=== PATIENT | female | born 1945 | race Two or more races ===

== ENCOUNTER 2017-01-16 21:49 | Inpatient (IN) | payer MEDICARE, MEDICAID ==
[~2017-01-16] VITALS: Ht 162.6 cm; Wt 39.0 kg
[2017-01-16 21:50] VITALS: BP 140/80
--- NOTE | 2017-01-16 22:21 | Emergency Room Report ---
History of Present Illness General Chief Complaint: Altered Level of Consciousness Source: EMS, Caregiver Present Illness HPI Patient is 71-year-old female brought in by EMS for altered mental status. Patient had prior history of Parkinson's disease. Patient was noted to be on the same medications for quite some time. Patient reportedly had onset of symptoms approximately 4 PM. The patient had a decreased level consciousness. As she had been less responsive. Patient had prior history of CVA. She had not been having fever. She denied having any vomiting or diarrhea. The patient had been taking baby aspirin. Patient followed by Dr. Duckworht Allergies: Coded Allergies: No Known Allergies (Unverified , 01/16/17) Patient History Past Medical History: see triage record Reviewed Nursing Documentation: PMH: Agreed, PSxH: Agreed Review of Systems All Other Systems: limited Physical Exam Vital Signs Date Time Temp Pulse Resp B/P Pulse Ox O2 Delivery O2 Flow Rate FiO2 01/16/17 21:44 97.9 74 16 140/80 98 Room Air Sp02 EP Interpretation: reviewed, normal General Appearance: normal inspection, no apparent distress, thin, Chronically Ill Head: atraumatic ENT: normal ENT inspection, hearing grossly normal, normal voice Neck: normal inspection, supple, no bony tend, limited range of motion Respiratory: normal inspection, lungs clear, normal breath sounds, no respiratory distress, no retraction, no wheezing Cardiovascular #1: regular rate, rhythm, no edema Gastrointestinal: normal inspection, normal bowel sounds, non tender, soft, no guarding, no hernia Genitourinary: no CVA tenderness Musculoskeletal: normal inspection, back normal, normal range of motion Neurologic: normal inspection, responsive, curriculum and assessment coordinator III-XII nml as tested, motor weakness Psychiatric: normal inspection, judgement/insight normal, mood/affect normal Skin: normal inspection, normal color, no rash Medical Decision Making Diagnostic Impression: Primary Impression: Altered mental state Additional Impressions: Dementia Urinary tract disease ER Course Patient presented for altered mental status.Differential diagnosis included but was not limited to ischemic stroke, subarachnoid hemorrhage, hypoglycemia, spinal cord injury, neurodegenerative disorder, urinary tract infection, hypoxemia.Because of complexity of patient's case laboratory testing and imaging studies were ordered. A CT of head read by radiology showed a lacunar infarct. The patient was empirically given rectal aspirin. The patient noted have history of Parkinson disease. A urinalysis showed evidence of slight infection. Dr. Bruno Duckworth was contacted for inpatient management Labs Test 01/16/17 22:20 01/16/17 23:50 White Blood Count 4.2 K/UL (4.8-10.8) Red Blood Count 4.00 M/UL (4.20-5.40) Hemoglobin 14.7 G/DL (12.0-16.0) Hematocrit 40.8 % (37.0-47.0) Mean Corpuscular Volume 102 FL (80-99) Mean Corpuscular Hemoglobin 36.8 PG (27.0-31.0) Mean Corpuscular Hemoglobin Concent 36.1 G/DL (32.0-36.0) Red Cell Distribution Width 11.3 % (11.6-14.8) Platelet Count 157 K/UL (150-450) Mean Platelet Volume 8.9 FL (6.5-10.1) Neutrophils (%) (Auto) 76.4 % (45.0-75.0) Lymphocytes (%) (Auto) 13.8 % (20.0-45.0) Monocytes (%) (Auto) 7.6 % (1.0-10.0) Eosinophils (%) (Auto) 1.3 % (0.0-3.0) Basophils (%) (Auto) 1.0 % (0.0-2.0) Prothrombin Time 11.6 SEC (9.30-11.50) Prothromb Time International Ratio 1.1 (0.9-1.1) Activated Partial Thromboplast Time 44 SEC (23-33) Sodium Level 138 mEQ/L (135-145) Potassium Level 3.7 mEQ/L (3.4-4.9) Chloride Level 99 mEQ/L (98-107) Carbon Dioxide Level 30 mEQ/L (20-30) Anion Gap 9 (5-15) Blood Urea Nitrogen 17 mg/dL (7-23) Creatinine 0.9 mg/dL (0.5-0.9) Estimat Glomerular Filtration Rate mL/min (>60) Glucose Level 141 mg/dL (74-106) Calcium Level 9.5 mg/dL (8.6-10.2) Total Bilirubin 0.3 mg/dL (0.0-1.2) Aspartate Amino Transf (AST/SGOT) 29 U/L (5-40) Alanine Aminotransferase (ALT/SGPT) 5 U/L (3-33) Alkaline Phosphatase 78 U/L (35-104) Troponin I < 0.30 ng/mL (<=0.30) Total Protein 6.8 g/dL (6.6-8.7) Albumin 4.3 g/dL (3.5-5.2) Globulin 2.5 g/dL Albumin/Globulin Ratio 1.7 (1.0-2.7) Triglycerides Level 120 mg/dL (< 150) Cholesterol Level 143 mg/dL (< 200) LDL Cholesterol 60 mg/dL (60-99) HDL Cholesterol 59 mg/dL (> 60) Cholesterol/HDL Ratio 2.4 (3.3-4.4) Urine Color Yellow Urine Appearance Slightly cloudy Urine pH 7 (4.5-8.0) Urine Specific [place] 1.010 (1.005-1.035) Urine Protein Negative (NEGATIVE) Urine Glucose (UA) Negative (NEGATIVE) Urine Ketones Negative (NEGATIVE) Urine Occult Blood 2+ (NEGATIVE) Urine Nitrite Negative (NEGATIVE) Urine Bilirubin Negative (NEGATIVE) Urine Urobilinogen Normal MG/DL (0.0-1.0) Urine Leukocyte Esterase 1+ (NEGATIVE) Urine RBC 5-10 /HPF (0 - 2) Urine WBC 5-10 /HPF (0 - 2) Urine Squamous Epithelial Cells Few /LPF (NONE/OCC) Urine Bacteria Moderate /HPF (NONE) Urine Trichomonas Few /HPF (NONE) EKG Diagnostic Results Rate: normal Rhythm: NSR ST Segments: other - twave inversion Last Vital Signs Date Time Temp Pulse Resp B/P Pulse Ox O2 Delivery O2 Flow Rate FiO2 01/16/17 21:50 97.9 16 140/80 98 Room Air 01/16/17 21:44 74 Status: unchanged Disposition: ADMITTED INPATIENT Condition: Serious Rodrigo Marshall Jan 16, 2017 22:21
[2017-01-16 22:39] LABS: EOSINOPHILS % (AUTO) 1.3 % (0.0-3.0); LYMPHOCYTES % (AUTO) 13.8 % (20.0-45.0); MEAN CORPUSCULAR HEMOGLOBIN 36.8 PG (27.0-31.0); MEAN CORPUSCULAR HGB CONC 36.1 G/DL (32.0-36.0); MEAN CORPUSCULAR VOLUME 102 FL (80-99); MEAN PLATELET VOLUME 8.9 FL (6.5-10.1); MONOCYTES % (AUTO) 7.6 % (1.0-10.0); NEUTROPHILS % (AUTO) 76.4 % (45.0-75.0); PLATELET COUNT 157 K/UL (150-450); RED CELL DISTRIBUTION WIDTH 11.3 % (11.6-14.8); WHITE BLOOD COUNT 4.2 K/UL (4.8-10.8)
[2017-01-16 22:51] LABS: INR 1.1 (0.9-1.1); PROTHROMBIN TIME 11.6 SEC (9.30-11.50)
[2017-01-16 23:07] LABS: TROPONIN I < 0.30 ng/mL (<=0.30)
[2017-01-16 23:08] LABS: ALANINE AMINOTRANSFERASE 5 U/L (3-33); ALBUMIN/GLOBULIN RATIO 1.7 (1.0-2.7); ANION GAP 9 (5-15); ASPARTATE AMINO TRANSFERASE 29 U/L (5-40); CALCIUM 9.5 mg/dL (8.6-10.2); CARBON DIOXIDE 30 mEQ/L (20-30); CHLORIDE 99 mEQ/L (98-107); CHOLESTEROL 143 mg/dL (< 200); CHOLESTEROL/HDL RATIO 2.4 (3.3-4.4); CREATININE 0.9 mg/dL (0.5-0.9); HEMOLYSIS 10; LDL CHOLESTEROL (CALC.) 60 mg/dL (60-99); POTASSIUM 3.7 mEQ/L (3.4-4.9); SODIUM 138 mEQ/L (135-145); TOTAL PROTEIN 6.8 g/dL (6.6-8.7)
[2017-01-16] MEDS ORDERED: VITAMIN D400 INTLU ORAL (23:32)
[2017-01-16] MEDS ORDERED: CARBIDOPA-LEVO1 EA15 PO (23:32)
[2017-01-16] MEDS ORDERED: SINEMET 25-1001 EAC1 ORAL (23:32)
[2017-01-16] MEDS ORDERED: QUETIAPINE FUMA25 MG ORAL (23:32)
[2017-01-16] MEDS ORDERED: ELDEPRYL5 MG ORAL (23:32)
[2017-01-17] VITALS (9 sets, daily range): BP systolic 125–163; BP diastolic 65–84
[2017-01-17 00:16] LABS: APPEARANCE,URINE SLIGHTLY CLOUDY; KETONES,URINE NEGATIVE (NEGATIVE); LEUKOCYTE ESTERASE ,URINE 1+ (NEGATIVE); NITRITE,URINE NEGATIVE (NEGATIVE); PH,URINE 7 (4.5-8.0); PROTEIN,URINE NEGATIVE (NEGATIVE); UROBILINOGEN,URINE NORMAL MG/DL (0.0-1.0)
[2017-01-17 00:29] LABS: BACTERIA,URINE MODERATE /HPF; SQUAMOUS EPITHELIAL CELL,UR FEW /LPF (NONE/OCC)
[2017-01-17] MEDS ORDERED: cefTRIAXone 1 GM in D5W 55 ML IVPB ONE (00:45)
[2017-01-17] MEDS ORDERED: ELDEPRYL5 MG ORAL ×2 (01:54→02:03)
[2017-01-17] MEDS ORDERED: QUETIAPINE FUMA25 MG ORAL (01:54)
[2017-01-17] MEDS ORDERED: CARBIDOPA-LEVO1 EAC5 PO ×2 (01:54→02:03)
[2017-01-17] MEDS ORDERED: VITAMIN D-32000 UNI1 PO (01:54)
[2017-01-17] MEDS ORDERED: ASPIR 8181 MG ORAL (02:03)
[2017-01-17] MEDS ORDERED: SEROQUEL25 MG ORAL (02:03)
[2017-01-17] MEDS ORDERED: VITAMIN D31000 UNI2 PO (02:03)
[2017-01-17] MEDS ORDERED: ATORVASTATIN CA10 MG ORAL (02:03)
[2017-01-17] MEDS: metroNIDAZOLE 250mg tab ORAL SCH ×2 (06:12→14:00)
[2017-01-17] MEDS ORDERED: Aspirin Baby 81mg NG SCH (09:00)
--- NOTE | 2017-01-17 09:33 | Diagnostic Imaging Report ---
Indication: Altered mental status Technique: Continuous helical CT scanning of the head was performed utilizing automated exposure control without intravenous contrast material. Axial and coronal reconstructions were obtained. Comparison: None available CT dose: Total DLP 1447 mGycm; CTDI vol 70.4 mGy Findings: Evaluation is limited by artifact. There is no gross intracranial hemorrhage or focal cortical edema. The ventricles, sulci and cisterns are within normal limits for age. Periventricular hypoattenuation is seen. There is a 6 mm hypodensity in the left basal ganglia. The posterior fossa and fourth ventricle are unremarkable. Sellar and suprasellar regions are grossly unremarkable. Visualized mastoid air cells and paranasal sinuses are unremarkable. No focal lesions of the bony calvarium or soft tissues of the scalp are seen. Impression: No intracranial hemorrhage or focal cortical edema. Approximately 6 mm hypodensity of the left basal ganglia suggestive of acuity indeterminate lacunar infarct. MRI recommended for further evaluation as indicated. The above report is concordant with preliminary reading by [facility]. The CT scanner at [facility] is accredited by the [employer] and the scans are performed using protocols designed to limit radiation exposure to as low as reasonably achievable to attain images of sufficient resolution adequate for diagnostic evaluation.
[2017-01-17] MEDS: Aspirin Baby 81mg ORAL SCH (09:50)
[2017-01-17] MEDS: SELEGILINE 5 MG ORAL SCH ×2 (09:50→18:25)
[2017-01-17] MEDS: Vitamin D 1000 IU Tab ORAL SCH ×2 (09:50→18:25)
[2017-01-17] MEDS: Heparin 5000 units/ml inj SUBQ SCH ×2 (10:00→21:13)
--- NOTE | 2017-01-17 16:58 | Cardiology Report ---
APPROVED REPORT EKG Measurement Heart [id number] MD [id number] Normal sinus rhythm T wave abnormality, consider inferolateral ischemia Abnormal ECG
[2017-01-17 23:44] LABS: APPEARANCE,URINE CLEAR; KETONES,URINE NEGATIVE (NEGATIVE); LEUKOCYTE ESTERASE ,URINE NEGATIVE (NEGATIVE); NITRITE,URINE NEGATIVE (NEGATIVE); PH,URINE 7 (4.5-8.0); PROTEIN,URINE NEGATIVE (NEGATIVE); UROBILINOGEN,URINE NORMAL MG/DL (0.0-1.0)
--- NOTE | 2017-01-17 23:45 | History and Physical Report ---
DATE OF ADMISSION: 01/16/2017 REASON FOR ADMISSION: altered mentation. HISTORY OF PRESENT ILLNESS: This is a 71-year-old female who lives in a assisted living facility with other nuns. She was noted to be increasingly altered this afternoon and brought to the emergency room for evaluation. The patient has a history of Parkinson disease and mild dementia. Today, she was noted to be slumping down towards the ground, although responsive. She stated she could not get up, another man noted that her left eye was shut and that she was not able to speak for a short period of time. The patient did not have any recent fevers, chills, cough, sputum production, nausea, vomiting or diarrhea. PAST MEDICAL HISTORY: Cerebrovascular disease, dementia, Parkinson disease, gastroesophageal reflux disease, degenerative disk disease, and osteoarthritis. MEDICATIONS: Prior to admission, reviewed and reconciled. ALLERGIES: None. FAMILY HISTORY: Noncontributory. SOCIAL HISTORY: Negative for smoking, alcohol, or substance abuse. REVIEW OF SYSTEMS: No fevers or chills. No loss of hearing. Her speech has recovered at this time. No history of seizures. No history of melena or bright red blood per rectum. No history of kidney disorder. No history of myocardial infarction or hypertension. No history of asthma or blood clotting. PHYSICAL EXAMINATION: GENERAL: The patient is thin and frail, in no distress. Speech is somewhat lower than baseline, but coherent. VITAL SIGNS: Blood pressure 140/80, pulse 74, and respiratory rate 16. HEENT: Conjunctivae are pink. Sclerae are anicteric. Oropharynx clear. Mucous membranes moist. NECK: Supple. Jugular venous pressure normal. No bruits. LUNGS: Clear. CARDIAC: Regular rhythm and rate. Normal S1 and S2 with a fourth heart sound. ABDOMEN: Soft and nontender. EXTREMITIES: No edema. Sense of symmetric increased tone and rigidity with masklike faces is noted. LABORATORY AND DIAGNOSTIC DATA: White count is 4.2, hemoglobin 14.7, and MCV 102. BUN 17, creatinine 0.9, sodium 138, potassium 3.7, bicarbonate 30, and glucose 141. Urinalysis with 5-10 white cells, 2+ occult blood, cloudy and 1+ leukocyte esterase. IMPRESSION: 1. Possible transient ischemic attack. 2. Parkinson disease. 3. Cerebrovascular disease with dementia. 4. Urinary tract infection. 5. Mild hypovolemia and dehydration. 6. Mild prerenal azotemia with acute kidney injury. 7. Macrocytic anemia. PLAN: Hydration. Empiric antibiotics. Neurologic consultation. Reassess dosing of Sinemet, which appeared to be higher dose at this time. MRI of the brain. Carotid duplex study. Metabolic profile including B12 and folate levels. Bruno Duckworth M.D. DR: EH JOB#: [id number] CC:
[2017-01-17 23:59] LABS: BACTERIA,URINE FEW /HPF; SQUAMOUS EPITHELIAL CELL,UR FEW /LPF (NONE/OCC); WBC,URINE 0-2 /HPF (0 - 2)
[2017-01-18] VITALS (7 sets, daily range): BP systolic 132–180; BP diastolic 62–81
[2017-01-18] MEDS ORDERED: cefTRIAXone 1 GM in D5W 55 ML IVPB SCH ×2
--- NOTE | 2017-01-18 02:00 | Progress Note ---
DATE: 01/17/2017 INTERNAL MEDICINE PROGRESS NOTE SUBJECTIVE: The patient is more alert. She has no specific complaints. Other nuns from her con[facility] are present. They reaffirmed that she was unresponsive for a short time yesterday as well as unable to open her left eye. The patient's appetite is fair. OBJECTIVE: VITAL SIGNS: Blood pressure 125/65, pulse 76, respirations 20, and afebrile. HEENT: No facial asymmetry. NECK: Supple. LUNGS: Clear. CARDIAC: Regular. Normal S1 and S2. ABDOMEN: Soft. EXTREMITIES: No edema. IMPRESSION: 1. Possible transient ischemic attack. 2. Cerebrovascular disease with mild dementia. 3. Parkinson's disease. On high dose Sinemet. 4. Urinary tract infection. 5. Mild hypovolemia and dehydration, improved. PLAN: 1. Neurologic evaluation to assist with the dosing of Sinemet. 2. Continue empiric antibiotics. 3. IV fluid hydration. 4. Await carotid duplex and MRI of the brain. Bruno Duckworth M.D. DR: AYAN JOB#: [id number] CC:
[2017-01-18 07:09] LABS: BASOPHILS % (AUTO) 1.2 % (0.0-2.0); EOSINOPHILS % (AUTO) 2.7 % (0.0-3.0); LYMPHOCYTES % (AUTO) 17.4 % (20.0-45.0); MEAN CORPUSCULAR HEMOGLOBIN 35.7 PG (27.0-31.0); MEAN CORPUSCULAR HGB CONC 34.9 G/DL (32.0-36.0); MEAN CORPUSCULAR VOLUME 102 FL (80-99); MEAN PLATELET VOLUME 8.6 FL (6.5-10.1); MONOCYTES % (AUTO) 11.4 % (1.0-10.0); NEUTROPHILS % (AUTO) 67.2 % (45.0-75.0); PLATELET COUNT 120 K/UL (150-450); RED BLOOD COUNT 3.66 M/UL (4.20-5.40); RED CELL DISTRIBUTION WIDTH 11.1 % (11.6-14.8); WHITE BLOOD COUNT 3.9 K/UL (4.8-10.8)
[2017-01-18 07:22] LABS: TROPONIN I < 0.30 ng/mL (<=0.30)
[2017-01-18 07:23] LABS: ALANINE AMINOTRANSFERASE 5 U/L (3-33); ALBUMIN/GLOBULIN RATIO 1.6 (1.0-2.7); ANION GAP 10 (5-15); ASPARTATE AMINO TRANSFERASE 32 U/L (5-40); CARBON DIOXIDE 27 mEQ/L (20-30); CHLORIDE 109 mEQ/L (98-107); CREATININE 0.7 mg/dL (0.5-0.9); HEMOLYSIS 4; MAGNESIUM 2.1 mg/dL (1.7-2.5); POTASSIUM 4.3 mEQ/L (3.4-4.9); SODIUM 146 mEQ/L (135-145); TOTAL PROTEIN 6.2 g/dL (6.6-8.7)
[2017-01-18] MEDS: Vitamin D 1000 IU Tab ORAL SCH ×2 (08:44→18:43)
[2017-01-18] MEDS: SELEGILINE 5 MG ORAL SCH (08:44)
[2017-01-18] MEDS: Heparin 5000 units/ml inj SUBQ SCH ×2 (08:45→21:00)
[2017-01-18] MEDS: Aspirin Baby 81mg ORAL SCH (08:45)
[2017-01-18] MEDS ORDERED: Tubing IV Secondary IV ONE (10:07)
--- NOTE | 2017-01-18 10:51 | Diagnostic Imaging Report ---
Indication: Altered level of consciousness Technique: The head was imaged in a 1.5 Siobhan magnet. Sequences obtained include sagittal and axial T1 FLAIR, axial T2 fast spin echo with fat saturation, axial T2 FLAIR, diffusion and ADC map. Comparison: None Findings: There is mild prominence of the sulci, ventricles, and basal cisterns consistent with atrophy. Mild, nonspecific T2 hyperintensity noted within white matter. This may be due to chronic small vessel disease. Few nonspecific cystic foci noted in the basal ganglia bilaterally. These could be normal perivascular spaces or Virchow-Moustapha spaces or old lacunar infarcts. There is no restricted diffusion. Dubois-white differentiation is normal. There is no mass effect, midline shift, edema, or hemorrhage. There are no abnormal extra-axial or intra-axial fluid collections. The corpus callosum and sella are unremarkable. The brainstem and cerebellum are unremarkable. Bone marrow signal within the visualized osseous structures appears age appropriate and unremarkable otherwise. Impression: No acute intracranial findings. Mild atrophy and evidence of chronic small vessel disease involving white matter tracts.
--- NOTE | 2017-01-18 12:53 | Neurology Progress Note ---
Objective Physical Exam Last Vital Signs Date Time Temp Pulse Resp B/P Pulse Ox O2 Delivery O2 Flow Rate FiO2 01/18/17 12:49 97.8 77 18 151/77 96 Room Air Laboratory Tests Test 01/17/17 23:20 01/18/17 06:05 Urine Color Yellow Urine Appearance Clear Urine pH 7 (4.5-8.0) Urine Specific [place] 1.010 (1.005-1.035) Urine Protein Negative (NEGATIVE) Urine Glucose (UA) Negative (NEGATIVE) Urine Ketones Negative (NEGATIVE) Urine Occult Blood 1+ (NEGATIVE) H Urine Nitrite Negative (NEGATIVE) Urine Bilirubin Negative (NEGATIVE) Urine Urobilinogen Normal MG/DL (0.0-1.0) Urine Leukocyte Esterase Negative (NEGATIVE) Urine RBC 2-4 /HPF (0 - 2) H Urine WBC 0-2 /HPF (0 - 2) Urine Squamous Epithelial Cells Few /LPF (NONE/OCC) Urine Bacteria Few /HPF (NONE) White Blood Count 3.9 K/UL (4.8-10.8) L Red Blood Count 3.66 M/UL (4.20-5.40) L Hemoglobin 13.1 G/DL (12.0-16.0) Hematocrit 37.4 % (37.0-47.0) Mean Corpuscular Volume 102 FL (80-99) H Mean Corpuscular Hemoglobin 35.7 PG (27.0-31.0) H Mean Corpuscular Hemoglobin Concent 34.9 G/DL (32.0-36.0) Red Cell Distribution Width 11.1 % (11.6-14.8) L Platelet Count 120 K/UL (150-450) L Mean Platelet Volume 8.6 FL (6.5-10.1) Neutrophils (%) (Auto) 67.2 % (45.0-75.0) Lymphocytes (%) (Auto) 17.4 % (20.0-45.0) L Monocytes (%) (Auto) 11.4 % (1.0-10.0) H Eosinophils (%) (Auto) 2.7 % (0.0-3.0) Basophils (%) (Auto) 1.2 % (0.0-2.0) Sodium Level 146 mEQ/L (135-145) H Potassium Level 4.3 mEQ/L (3.4-4.9) Chloride Level 109 mEQ/L (98-107) H Carbon Dioxide Level 27 mEQ/L (20-30) Anion Gap 10 (5-15) Blood Urea Nitrogen 10 mg/dL (7-23) Creatinine 0.7 mg/dL (0.5-0.9) Estimat Glomerular Filtration Rate mL/min (>60) Glucose Level 110 mg/dL (74-106) H Calcium Level 9.0 mg/dL (8.6-10.2) Magnesium Level 2.1 mg/dL (1.7-2.5) Total Bilirubin 0.3 mg/dL (0.0-1.2) Aspartate Amino Transf (AST/SGOT) 32 U/L (5-40) Alanine Aminotransferase (ALT/SGPT) 5 U/L (3-33) Alkaline Phosphatase 70 U/L (35-104) Troponin I < 0.30 ng/mL (<=0.30) Total Protein 6.2 g/dL (6.6-8.7) L Albumin 3.9 g/dL (3.5-5.2) Globulin 2.3 g/dL Albumin/Globulin Ratio 1.6 (1.0-2.7) Vitamin B12 Level 724 pg/mL (211-946) Folate Pending Thyroid Stimulating Hormone (TSH) 2.030 uIU/mL (0.300-4.500) Impression/Recommendations Problems: (1) Parkinson disease (2) Generalized weakness Status: unchanged Recommendations [id number] GERSON GIPSON Jan 18, 2017 12:53
[2017-01-18] MEDS: ENTACAPONE ORAL SCH ×2 (16:37→18:43)
[2017-01-18] MEDS: LEVODOPA ORAL SCH ×2 (16:37→18:43)
[2017-01-18] MEDS: CARBIDOPA ORAL SCH ×2 (16:37→18:43)
--- NOTE | 2017-01-18 17:40 | Neurology Progress Note ---
Objective Physical Exam Last Vital Signs Date Time Temp Pulse Resp B/P Pulse Ox O2 Delivery O2 Flow Rate FiO2 01/18/17 15:00 97.2 18 148/80 98 Room Air 01/18/17 12:49 77 Laboratory Tests Test 01/17/17 23:20 01/18/17 06:05 Urine Color Yellow Urine Appearance Clear Urine pH 7 (4.5-8.0) Urine Specific [place] 1.010 (1.005-1.035) Urine Protein Negative (NEGATIVE) Urine Glucose (UA) Negative (NEGATIVE) Urine Ketones Negative (NEGATIVE) Urine Occult Blood 1+ (NEGATIVE) H Urine Nitrite Negative (NEGATIVE) Urine Bilirubin Negative (NEGATIVE) Urine Urobilinogen Normal MG/DL (0.0-1.0) Urine Leukocyte Esterase Negative (NEGATIVE) Urine RBC 2-4 /HPF (0 - 2) H Urine WBC 0-2 /HPF (0 - 2) Urine Squamous Epithelial Cells Few /LPF (NONE/OCC) Urine Bacteria Few /HPF (NONE) White Blood Count 3.9 K/UL (4.8-10.8) L Red Blood Count 3.66 M/UL (4.20-5.40) L Hemoglobin 13.1 G/DL (12.0-16.0) Hematocrit 37.4 % (37.0-47.0) Mean Corpuscular Volume 102 FL (80-99) H Mean Corpuscular Hemoglobin 35.7 PG (27.0-31.0) H Mean Corpuscular Hemoglobin Concent 34.9 G/DL (32.0-36.0) Red Cell Distribution Width 11.1 % (11.6-14.8) L Platelet Count 120 K/UL (150-450) L Mean Platelet Volume 8.6 FL (6.5-10.1) Neutrophils (%) (Auto) 67.2 % (45.0-75.0) Lymphocytes (%) (Auto) 17.4 % (20.0-45.0) L Monocytes (%) (Auto) 11.4 % (1.0-10.0) H Eosinophils (%) (Auto) 2.7 % (0.0-3.0) Basophils (%) (Auto) 1.2 % (0.0-2.0) Sodium Level 146 mEQ/L (135-145) H Potassium Level 4.3 mEQ/L (3.4-4.9) Chloride Level 109 mEQ/L (98-107) H Carbon Dioxide Level 27 mEQ/L (20-30) Anion Gap 10 (5-15) Blood Urea Nitrogen 10 mg/dL (7-23) Creatinine 0.7 mg/dL (0.5-0.9) Estimat Glomerular Filtration Rate mL/min (>60) Glucose Level 110 mg/dL (74-106) H Calcium Level 9.0 mg/dL (8.6-10.2) Magnesium Level 2.1 mg/dL (1.7-2.5) Total Bilirubin 0.3 mg/dL (0.0-1.2) Aspartate Amino Transf (AST/SGOT) 32 U/L (5-40) Alanine Aminotransferase (ALT/SGPT) 5 U/L (3-33) Alkaline Phosphatase 70 U/L (35-104) Troponin I < 0.30 ng/mL (<=0.30) Total Protein 6.2 g/dL (6.6-8.7) L Albumin 3.9 g/dL (3.5-5.2) Globulin 2.3 g/dL Albumin/Globulin Ratio 1.6 (1.0-2.7) Vitamin B12 Level 724 pg/mL (211-946) Folate Pending Thyroid Stimulating Hormone (TSH) 2.030 uIU/mL (0.300-4.500) Impression/Recommendations Problems: (1) Parkinson disease (2) Generalized weakness Status: unchanged Recommendations # [id number] nuplazid 17mg qhs sinemet 25/100mg 1200 and 1600 sinemet sr 50/200 at 700am and 2200pm GERSON GIPSON Jan 18, 2017 17:40
[2017-01-18] MEDS: cefTRIAXone 1 GM in D5W 55 ML IVPB SCH (23:57)
[2017-01-19] VITALS (7 sets, daily range): BP systolic 116–165; BP diastolic 58–91
--- NOTE | 2017-01-19 | Consultation ---
DATE OF CONSULTATION: 01/18/2017 NEUROLOGICAL CONSULTATION: CONSULTING PHYSICIAN: Zhao Ray M.D. REQUESTING PHYSICIAN: Bruno Duckworth M.D. HISTORY OF PRESENT ILLNESS: This is a 71-year-old female seen in neurological consultation to evaluate new onset of changes in mental status. Note that the patient is suffering from advanced form of Parkinson disease, which dates back to about 10 years ago. The patient informed me that about a month ago, her doses of antiparkinson medications were increased. For the last few weeks, she has episodes of feeling like electricity goes to whole body, arms, legs, and body. Then on the day of admission, the whole day along, she was not feeling well. She was groggy and at around 4 p.m., when she was supposed to be prepared to go to dinning room for supper, she was excessively drowsy and responded with yes or no. She has profound generalized weakness and could not move. The patient felt "my whole body was weak and my eyes were closed". She apparently was able to comprehend events and communicate, but limited with her sisters and nuns. At that point, paramedics were called to the scene. She was found to be lying supine on the ground. Apparently, she was placed on the ground by the staff of the facility. The patient described as normal, somewhat confused, but with parkinsonian symptoms, ambulatory with a walker and able to converse. For a couple of days, she did not feel well, gradually getting worse, not responding, her vital signs were stable, and there were no orthostatic changes reported. A 12-lead EKG was normal sinus rhythm. In a field, she was able to open eyes to the speech, but saying nothing. She followed all commands. I was able to raise her hand by herself. There was no face droop. Her blood pressure was 144/67, heart rate of 76, respiration was 16, and pulse oximetry was 98%. On arrival to the emergency room, vital signs remained unchanged. According to nursing summary from emergency room, on admission, she was described as nonverbal and not responding to her name, although vital signs were stable and following a couple of hours of observation, condition unchanged, she now was conversing and was able to respond to questions, but still lying in bed without movement and not opening her eyes, she was able to respond slowly when prompted. Her laboratory work on admission included mild anemia. Her WBC was 4.2, elevated MCV/MCH, coagulation panel with PT of 11.6 with INR 1.1, urinalysis, 5-10 WBCs. Chemistry panel is unremarkable except blood sugar 141 and normal B12, and normal TSH, and troponins. Imaging studies included CT scan and then MRI of the brain, which revealed small vessel disease. Few nonspecific cystic foci noted in the basal ganglia bilaterally. There was no acute abnormalities noted. Her carotid Duplex study included revealed no hemodynamically significant lesions. The patient report gradual improvement. On admission, the patient was observed being unresponsive for a short period of time and was unable to open her left eye. Neurological assessment so far revealed no lateralizing finding except evidence of parkinsonian disease. PAST MEDICAL HISTORY: The patient has a history of Parkinson disease, advanced. No major medical issues reported. MEDICATIONS: Treatment prior to admission included aspirin 81 mg, Lipitor 10 mg, but also Sinemet extended released 50/200 mg b.i.d. and Sinemet with entacapone 200 mg daily once a day. She is on vitamin D3, Seroquel 25 mg b.i.d., and selegiline 5 mg. ALLERGIES: None reported. SOCIAL HISTORY: The patient lives in assisted facility for none. No alcohol. No drug abuse. FAMILY HISTORY: Noncontributory. REVIEW OF SYSTEMS: The patient indicated that at this time she is back to her baseline. She felt unusual "weak" with electric current through her body in the last couple of days. She denies headache or dizziness. No chest pain or palpitations. No respiratory problems. Denies abdominal pain or discomfort. No urine or bowel incontinence. PHYSICAL EXAMINATION: GENERAL: Well-developed, somewhat cachectic elderly female, sitting in a chair in her friend's next room. VITAL SIGNS: Vital signs are now stable. Her vital signs with some fluctuation documented this morning. Blood pressure is 180/81, now back to 132/62. HEENT: Head is normocephalic. No evidence of trauma. Eyes, ears, and throat are clear. NECK: Rigid in all directions. MUSCULOSKELETAL: Unremarkable. No deformities. Peripheral pulses 1+ symmetric. MENTAL STATUS: The patient is alert and oriented to her name, age, and place. She speaks reasonable Welsh, although her primary is Austrian, at times required assistance by her friend, who is hourly sign language interpreter. She was coherent and follows command. CRANIAL NERVE II: Pupils both responding to light and accommodation. Extraocular movement full range. CRANIAL NERVES V: Normal corneal responses. No facial asymmetry. CRANIAL NERVES VIII: Grossly normal hearing. CRANIAL NERVES IX THROUGH XII: Tongue is in midline. Symmetric palate elevation. MOTOR EXAMINATION: Revealed diffuse rigidity, bradykinesia with a strength 5/5 in all extremities. Minor, resting tremor of both hands. Reflexes 1+ bilaterally symmetric. Plantar responses flexor. Sensory examination normal to pinprick and light touch. Gait is shuffling, required some assistance. IMPRESSION: This is a 71-year-old female with advanced Parkinson disease, now presenting with episodes of generalized profound weakness and some lethargy. This very likely represents metabolic encephalopathy related to underlying dehydration and urinary tract infection in the setting of polypharmacy. DISCUSSION: I spoke with a nun, who was present with the patient for the last couple of days. She was not insisting having that the patient would have any lateralizing findings. Appears to be that the patient was unable to drink enough fluids, when she was not "feeling well" and was quite weak. MRI of the brain revealed no evidence of acute abnormalities and her carotids revealed no hemodynamically significant lesions. The patient is on the proper preventive treatment with aspirin and statins. But at this time, presence of polypharmacy may contribute to sedation. She is on Seroquel 25 mg b.i.d. and I would reduce this only at bedtime p.r.n. for agitation. Overall, Seroquel may be adversely affecting underlying Parkinson disease. Current set of Sinemet is probably appropriate. It was recommended by her treating neurologist. I would suggest that the patient would rather have smaller doses, but more frequent intake, four or five times a day. Meanwhile continue with IV fluids, antibiotics to cover underlying infection, get PT/OT, and mobility protocol. Thank you for allowing me to see this interesting patient in neurological consultation. Zhao Ray M.D. DR: Lanie JOB#: [id number] CC:
--- NOTE | 2017-01-19 03:45 | Progress Note ---
DATE: 01/18/2017 INTERNAL MEDICINE PROGRESS NOTE: SUBJECTIVE: The patient is more alert today and more verbal. MRI revealed no acute process. Diffuse white matter disease confirmed. Neurologic consult appreciated. OBJECTIVE: GENERAL: Increased tone, rigidity poor, and unsteady gait. VITAL SIGNS: Blood pressure is 134/68, pulse rate 73, and respiratory rate 20. NECK: Supple. LUNGS: Clear. CARDIAC: Regular. Kyphoscoliosis. ABDOMEN: Soft. EXTREMITIES: No edema. IMPRESSION: 1. Dehydration. 2. Hypovolemia. 3. Urinary tract infection. 4. Parkinson's disease. 5. Dementia. 6. Over sedation. PLAN: 1. Re-dosing Sinemet, per Dr. Ray. 2. Taper off Seroquel. 3. Add antidepressant. 4. Continue intravenous fluids. 5. Empiric antibiotics. 6. Physical and occupational therapy assessment. Bruno Duckworth M.D. DR: SMITA/brina JOB#: [id number] CC:
[2017-01-19 06:31] LABS: BASOPHILS % (AUTO) 0.5 % (0.0-2.0); EOSINOPHILS % (AUTO) 1.8 % (0.0-3.0); LYMPHOCYTES % (AUTO) 25.7 % (20.0-45.0); MEAN CORPUSCULAR HEMOGLOBIN 35.7 PG (27.0-31.0); MEAN CORPUSCULAR HGB CONC 35.5 G/DL (32.0-36.0); MEAN CORPUSCULAR VOLUME 101 FL (80-99); MEAN PLATELET VOLUME 8.8 FL (6.5-10.1); MONOCYTES % (AUTO) 9.9 % (1.0-10.0); NEUTROPHILS % (AUTO) 62.1 % (45.0-75.0); PLATELET COUNT 158 K/UL (150-450); RED CELL DISTRIBUTION WIDTH 10.9 % (11.6-14.8); WHITE BLOOD COUNT 5.7 K/UL (4.8-10.8)
[2017-01-19 06:49] LABS: ALANINE AMINOTRANSFERASE 5 U/L (3-33); ALBUMIN/GLOBULIN RATIO 1.2 (1.0-2.7); ANION GAP 11 (5-15); ASPARTATE AMINO TRANSFERASE 34 U/L (5-40); CALCIUM 9.5 mg/dL (8.6-10.2); CARBON DIOXIDE 26 mEQ/L (20-30); CHLORIDE 108 mEQ/L (98-107); CREATININE 0.6 mg/dL (0.5-0.9); HEMOLYSIS 6; POTASSIUM 3.6 mEQ/L (3.4-4.9); SODIUM 145 mEQ/L (135-145); TOTAL PROTEIN 7.3 g/dL (6.6-8.7)
[2017-01-19] MEDS: Vitamin D 1000 IU Tab ORAL SCH ×2 (09:00→18:00)
[2017-01-19] MEDS: Heparin 5000 units/ml inj SUBQ SCH ×2 (09:00→20:41)
[2017-01-19] MEDS: Aspirin Baby 81mg ORAL SCH (09:00)
[2017-01-19 09:07] LABS: ABG BASE EXCESS 0.8; ABG PCO2 34.3 mmHg (35.0-45.0)
[2017-01-19 09:08] LABS: ABG ALLEN TEST POSITIVE
[2017-01-19] MEDS: ENTACAPONE ORAL SCH ×4 (10:00→19:00)
[2017-01-19] MEDS: LEVODOPA ORAL SCH ×4 (10:00→19:00)
[2017-01-19] MEDS: CARBIDOPA ORAL SCH ×4 (10:00→19:00)
--- NOTE | 2017-01-19 11:35 | Diagnostic Imaging Report ---
Indications: Altered level of consciousness Technique: Continuous helical CT imaging of the brain was performed with automatic exposure control on a Siemens sensation [address] scanner. Axial and coronal images were reconstructed at 5 mm slice thickness and interval. 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 No evidence of mass or hemorrhage, other attenuation abnormality, mass effect, midline shift, hydrocephalus or increased intracranial pressure. Bone window images are unremarkable. Visualized paranasal sinuses and mastoid air cells are clear. IMPRESSION: No evidence of acute intracranial pathology , unchanged. Stable chronic changes as described The CT scanner at [facility] is accredited by the [employer] and the scans are performed using protocols designed to limit radiation exposure to as low as reasonably achievable to attain images of sufficient resolution adequate for diagnostic evaluation.
[2017-01-19] MEDS ORDERED: LORazepam Inj 2mg/ml 1ml IV ONE (11:40)
[2017-01-19] MEDS ORDERED: Sinemet 25/100 tab ORAL SCH (12:00)
--- NOTE | 2017-01-19 15:16 | Neurology Progress Note ---
Interim History Interim History ROS Limited/Unobtainable: Yes Complaints: nonverbal Events: at noon became "frozn" given 0.5 mg Ativan Objective Physical Exam Last Vital Signs Date Time Temp Pulse Resp B/P Pulse Ox O2 Delivery O2 Flow Rate FiO2 01/19/17 12:00 96.2 85 20 144/72 97 Room Air Laboratory Tests Test 01/19/17 05:20 01/19/17 08:59 White Blood Count 5.7 K/UL (4.8-10.8) Red Blood Count 4.20 M/UL (4.20-5.40) Hemoglobin 15.0 G/DL (12.0-16.0) Hematocrit 42.3 % (37.0-47.0) Mean Corpuscular Volume 101 FL (80-99) H Mean Corpuscular Hemoglobin 35.7 PG (27.0-31.0) H Mean Corpuscular Hemoglobin Concent 35.5 G/DL (32.0-36.0) Red Cell Distribution Width 10.9 % (11.6-14.8) L Platelet Count 158 K/UL (150-450) Mean Platelet Volume 8.8 FL (6.5-10.1) Neutrophils (%) (Auto) 62.1 % (45.0-75.0) Lymphocytes (%) (Auto) 25.7 % (20.0-45.0) Monocytes (%) (Auto) 9.9 % (1.0-10.0) Eosinophils (%) (Auto) 1.8 % (0.0-3.0) Basophils (%) (Auto) 0.5 % (0.0-2.0) Sodium Level 145 mEQ/L (135-145) Potassium Level 3.6 mEQ/L (3.4-4.9) Chloride Level 108 mEQ/L (98-107) H Carbon Dioxide Level 26 mEQ/L (20-30) Anion Gap 11 (5-15) Blood Urea Nitrogen 8 mg/dL (7-23) Creatinine 0.6 mg/dL (0.5-0.9) Estimat Glomerular Filtration Rate mL/min (>60) Glucose Level 115 mg/dL (74-106) H Calcium Level 9.5 mg/dL (8.6-10.2) Total Bilirubin 0.3 mg/dL (0.0-1.2) Aspartate Amino Transf (AST/SGOT) 34 U/L (5-40) Alanine Aminotransferase (ALT/SGPT) 5 U/L (3-33) Alkaline Phosphatase 86 U/L (35-104) Total Protein 7.3 g/dL (6.6-8.7) Albumin 4.1 g/dL (3.5-5.2) Globulin 3.2 g/dL Albumin/Globulin Ratio 1.2 (1.0-2.7) Arterial Blood pH 7.463 (7.350-7.450) Arterial Blood Partial Pressure CO2 34.3 mmHg (35.0-45.0) L Arterial Blood Partial Pressure O2 77.3 mmHg (75.0-100.0) Arterial Blood HCO3 24.0 mmol/L (22.0-26.0) Arterial Blood Oxygen Saturation 95.6 % (92.0-98.0) Arterial Blood Base Excess 0.8 Reji Test Positive General: no acute distress, other - drowsy Head: normocophalic, atraumatic Neck: other - rigid Neurologic Exam Mental Status: other - arousble follows command, mumbling Speech: other Language: other Cranial Nerve II: fundus normal, visual archibald, no papilledema Cranial Nerves III, IV, : PERRLA, EOMI, pupils Cranial Nerve V: normal facial sensations, temporales function normal, masseters function normal, pterygoids function normal Cranial Nerve VII: no facial asymmetry Cranial Nerve VIII: normal hearing Cranial Nerve IX: other Cranial Nerve XI: other Cranial Nerve XII: tongue midline Motor System: other - diffuse rigidity able to lift arms , bbradykinesia Sensory: other Deep Tendon Reflexes: 0 ankle (L), 0 ankle (R), 0 bicep (L), 0 bicep (R), 0 brachioradialis (L), 0 brachioradialis (R), 0 knee (L), 0 knee (R), 0 tricep (L) , 0 tricep (R) Reflexes: mute plantar (L), mute plantar (R) Impression/Recommendations Problems: (1) Parkinson disease (2) Generalized weakness Status: unchanged Recommendations # [id number] nuplazid 17mg qhs sinemet [id number] qid mirapex 0.25mg qid, IV d5/1/2ns GERSON GIPSON Jan 19, 2017 15:16
[2017-01-19] MEDS ORDERED: Sinemet 25/100 tab ORAL PRN (15:30)
[2017-01-19] MEDS: D5 1/2NS w/KCl 20mEq 1,000 ML IV SCH (22:29)
[2017-01-20] MEDS: cefTRIAXone 1 GM in D5W 55 ML IVPB SCH (00:12)
[2017-01-20 04:00] VITALS: BP 160/77
[2017-01-20 08:00] VITALS: BP 158/84
[2017-01-20] MEDS ORDERED: 1/2 NS 1000ml IV ONE ×2 (08:45→08:54)
[2017-01-20] MEDS: Aspirin Baby 81mg ORAL SCH (09:00)
[2017-01-20] MEDS: Vitamin D 1000 IU Tab ORAL SCH ×2 (09:00→18:02)
[2017-01-20] MEDS: Heparin 5000 units/ml inj SUBQ SCH ×2 (09:00→22:16)
[2017-01-20] MEDS: D5 1/2NS w/KCl 20mEq 1,000 ML IV SCH ×2 (09:16→18:03)
--- NOTE | 2017-01-20 09:30 | Progress Note ---
DATE: 01/19/2017 INTERNAL MEDICINE PROGRESS NOTE SUBJECTIVE: The patient's condition deteriorated today. She became unresponsive this morning for some time. She awoke and then became frozen "again." She was given Ativan. She continues to be arousable, but very somnolent. She was seen by neurologist, who felt that complications of Parkinson's were involved. A CAT scan of the brain done urgently revealed no acute process. OBJECTIVE: VITAL SIGNS: Blood pressure is 144/72, pulse 85, respirations 20, she is afebrile. NECK: Supple. LUNGS: Clear. CARDIAC: Regular. Normal S1 and S2. ABDOMEN: Soft. EXTREMITIES: No edema. The patient moves all extremities. NEUROLOGIC: Pupils are responsive. LABORATORY DATA: White count is 5.7 and hemoglobin 15. Sodium 145, potassium 3.6, bicarbonate 26, BUN 8, and creatinine 0.6. ABG, pH 7.46, pCO2 of 34, and pO2 of 77. IMPRESSION: 1. Delirium. 2. Dementia. 3. Parkinson disease. 4. Dehydration. 5. Urinary tract infection. 6. Hypovolemia. PLAN: 1. Discontinue all sedations including Seroquel. 2. has been added by neurologist. 3. Continue Sinemet. 4. Continue hypotonic IV fluids with potassium replacement, antidepressant added, aspiration precautions. Bruno Duckworth M.D. DR: SACHIN JOB#: [id number] CC:
[2017-01-20 09:46] LABS: ABG ALLEN TEST POSITIVE; ABG BASE EXCESS 2.1
[2017-01-20] MEDS: ENTACAPONE ORAL SCH ×4 (11:00→18:02)
[2017-01-20] MEDS: LEVODOPA ORAL SCH ×4 (11:00→18:02)
[2017-01-20] MEDS: CARBIDOPA ORAL SCH ×4 (11:00→18:02)
--- NOTE | 2017-01-20 11:10 | Neurology Progress Note ---
Interim History Interim History ROS Limited/Unobtainable: Yes Complaints: paranoid refusing meds Events: in AM was unresponcivex2 hrs, no assoc signs Objective Physical Exam Last Vital Signs Date Time Temp Pulse Resp B/P (MAP) Pulse Ox O2 Delivery O2 Flow Rate FiO2 01/20/17 10:45 179/92 01/20/17 08:00 98.1 90 18 97 Room Air Laboratory Tests Test 01/20/17 09:30 Arterial Blood pH 7.485 (7.350-7.450) Arterial Blood Partial Pressure CO2 34.0 mmHg (35.0-45.0) L Arterial Blood Partial Pressure O2 80.2 mmHg (75.0-100.0) Arterial Blood HCO3 25.0 mmol/L (22.0-26.0) Arterial Blood Oxygen Saturation 96.0 % (92.0-98.0) Arterial Blood Base Excess 2.1 Reji Test Positive General: no acute distress, other - drowsy, awake appears withdrawan, follows command speach slow. Head: normocophalic, atraumatic Neck: other - rigid Neurologic Exam Mental Status: other - arousble follows command,spaeak bilingual Speech: other Language: other Cranial Nerve II: fundus normal, visual archibald, no papilledema Cranial Nerves III, IV, : PERRLA, EOMI, pupils Cranial Nerve V: normal facial sensations, temporales function normal, masseters function normal, pterygoids function normal Cranial Nerve VII: no facial asymmetry Cranial Nerve VIII: normal hearing Cranial Nerve IX: other Cranial Nerve XI: other Cranial Nerve XII: tongue midline Motor System: other - diffuse rigidity able to lift arms , bbradykinesia Sensory: other Deep Tendon Reflexes: 0 bicep (L), 0 bicep (R), 0 tricep (L), 0 tricep (R), 0 brachioradialis (L), 0 brachioradialis (R), 0 knee (L), 0 knee (R), 0 ankle (L) , 0 ankle (R) Reflexes: mute plantar (L), mute plantar (R) Impression/Recommendations Problems: (1) Parkinson disease (2) Generalized weakness Status: unchanged Recommendations # [id number] nuplazid 17mg qhs sinemet [id number] qid mirapex 0.25mg qid, IV d5/1/2ns GERSON GIPSON Jan 20, 2017 11:10
--- NOTE | 2017-01-20 11:11 | Neurology Progress Note ---
Interim History Interim History ROS Limited/Unobtainable: Yes Complaints: paranoid refusing meds Events: in AM was unresponcivex2 hrs, no assoc signs Objective Physical Exam Last Vital Signs Date Time Temp Pulse Resp B/P (MAP) Pulse Ox O2 Delivery O2 Flow Rate FiO2 01/20/17 10:45 179/92 01/20/17 08:00 98.1 90 18 97 Room Air Laboratory Tests Test 01/20/17 09:30 Arterial Blood pH 7.485 (7.350-7.450) Arterial Blood Partial Pressure CO2 34.0 mmHg (35.0-45.0) L Arterial Blood Partial Pressure O2 80.2 mmHg (75.0-100.0) Arterial Blood HCO3 25.0 mmol/L (22.0-26.0) Arterial Blood Oxygen Saturation 96.0 % (92.0-98.0) Arterial Blood Base Excess 2.1 Reji Test Positive General: no acute distress, other - drowsy, awake appears withdrawan, follows command speach slow. Head: normocophalic, atraumatic Neck: other - rigid Neurologic Exam Mental Status: other - arousble follows command,spaeak bilingual Speech: other Language: other Cranial Nerve II: fundus normal, visual archibald, no papilledema Cranial Nerves III, IV, : PERRLA, EOMI, pupils Cranial Nerve V: normal facial sensations, temporales function normal, masseters function normal, pterygoids function normal Cranial Nerve VII: no facial asymmetry Cranial Nerve VIII: normal hearing Cranial Nerve IX: other Cranial Nerve XI: other Cranial Nerve XII: tongue midline Motor System: other - diffuse rigidity able to lift arms , bbradykinesia Sensory: other Deep Tendon Reflexes: 0 bicep (L), 0 bicep (R), 0 tricep (L), 0 tricep (R), 0 brachioradialis (L), 0 brachioradialis (R), 0 knee (L), 0 knee (R), 0 ankle (L) , 0 ankle (R) Reflexes: mute plantar (L), mute plantar (R) Impression/Recommendations Problems: (1) Parkinson disease (2) Generalized weakness Status: progressing, unchanged Recommendations # [id number] nuplazid 17mg qhs EEG sinemet [id number] qid mirapex 0.25mg qid, IV d5/1/2ns [id number] bid trial dr JONES to follow GERSON GIPSON Jan 20, 2017 11:11
[2017-01-20 12:00] VITALS: BP 162/79
[2017-01-20 16:00] VITALS: BP 144/70
[2017-01-20 20:00] VITALS: BP 117/66
[2017-01-21] VITALS: BP 132/69
[2017-01-21] MEDS: cefTRIAXone 1 GM in D5W 55 ML IVPB SCH ×2 (01:02→23:34)
[2017-01-21] MEDS: D5 1/2NS w/KCl 20mEq 1,000 ML IV SCH ×3 (06:35→21:03)
[2017-01-21 08:22] VITALS: BP 162/78
[2017-01-21] MEDS: Aspirin Baby 81mg ORAL SCH (09:57)
[2017-01-21] MEDS: ENTACAPONE ORAL SCH ×4 (09:57→18:44)
[2017-01-21] MEDS: Vitamin D 1000 IU Tab ORAL SCH ×2 (09:57→18:43)
[2017-01-21] MEDS: LEVODOPA ORAL SCH ×4 (09:57→18:44)
[2017-01-21] MEDS: CARBIDOPA ORAL SCH ×4 (09:57→18:44)
[2017-01-21] MEDS: Heparin 5000 units/ml inj SUBQ SCH ×2 (09:58→21:00)
--- NOTE | 2017-01-21 11:45 | Consultation ---
Consult Note Consult Note NEUROLOGY FOLLOW-UP NOTE 01/21/2017 INTERIM HISTORY: Ms. Lu feels better. The mind is clearer. She feels stronger. She did some walking with the therapist earlier. She is not exhibiting any behavioral problems today. NEUROLOGIC REVIEW OF SYSTEMS: Benign. NEUROLOGIC EXAMINATION: Mental Status Examination: She was awake and alert. She was oriented to self only. She was able to recall 3/3 words immediately and could remember then in 1 and 3 minutes. She was able to remember presidents Trump and Obama only. Her mathematical skills were impaired and so was her visuospatial function. Speech: Mild dysarthria. Language: Mild anomia Cranial Nerve Examination: II through XII intact. Motor Examination: G 5-/5 except for G 4/5 in iliopsoas and toe extensors. Sensory Examination: Intact to pin prick, light touch and graphesthesia. Coordination: Intact to [id number] testing. Reflexes: 2+ and bilaterally symmetrical at the biceps, triceps, brachioradialis and knees. 0 at both ankles. The plantar reflexes were flexor bilaterally. Stance: She stood up with support. Gait: She took a few steps with support. Abnormal Movements: Tremor, Rigidity, Bradykinesia, Hypomimia, Hypophonia: G 0/4 Dyskinesia: G 1/4 DIAGNOSTIC IMPRESSION: 1. 71 year-old, right-handed, lady with past history of multiple medical problems including Parkinson's Disease who was admitted for episodes of generalized profound weakness and some lethargy. 2. The initial impression was that her alterd mental state represents a metabolic encephalopathy related to underlying dehydration and urinary tract infection in the setting of polypharmacy. 3. She is much better today. The mind is clearer and she is stronger. 4. On neurological examination, at this time she does have global cerebral dysfunction, generalized weakness and dyskinesias. Her parkinsonian signs are well controlled. She does however have dyskinesias. RECOMMENDATIONS: 1. Continue present management. 2. Increase activity as tolerated. Derrick Menjivar M.D., M.S.P.H. Neurologist & Clinical Neurophysiologist DERRICK MENJIVAR Jan 21, 2017 11:45
[2017-01-21 11:49] VITALS: BP 129/68
[2017-01-21 15:30] VITALS: BP 130/65
[2017-01-21 20:00] VITALS: BP 115/57
[2017-01-22] VITALS (7 sets, daily range): BP systolic 114–166; BP diastolic 54–86
--- NOTE | 2017-01-22 05:31 | Electroencephalogram ---
DATE OF TRACIN01/20/2017 REQUESTING PHYSICIANS: 1. Bruno Duckworth M.D. 2. Zhao Ray M.D. HISTORY: This EEG was performed on a 71-year-old lady who does have a past history of Parkinson disease and other medical problems and was admitted for an altered mental state. The purpose of this EEG was to evaluate the patient for the degree and type of cerebral dysfunction and to exclude ongoing ictal or interictal phenomena. TECHNICAL NOTE: This EEG was performed on [employer] with electrodes placed on the scalp according to the international 10-20 system. [id number]-[id number] and qoisi-hw-jmg montages were used. The EEG was technically satisfactory and was performed in the awake and drowsy states. OBSERVATIONS: In the best awake state, the background activity consisted of 8.5 to 9 Hz specifically predominant, well-developed alpha waveforms, which attenuated on eye opening. Drowsiness was characterized by dissolution of the alpha rhythm and appearance of slower frequencies in the 5 to 6 Hz theta range. No focal abnormalities or epileptiform discharges were seen. IMPRESSION: Normal awake and drowsy EEG. Easton Menjivar M.D. DR: DAWSON JOB#: [id number] CC:
[2017-01-22] MEDS: D5 1/2NS w/KCl 20mEq 1,000 ML IV SCH (06:05)
--- NOTE | 2017-01-22 06:32 | Progress Note ---
DATE: 01/21/2017 INTERNAL MEDICINE PROGRESS NOTE SUBJECTIVE: The patient is awake, alert, and oriented to self. Today, she has improved with regard to mentation and level of interaction. She has a better appetite and is tolerating oral intake. OBJECTIVE: VITAL SIGNS: Stable. NECK: Supple. LUNGS: Clear. CARDIAC: Regular. ABDOMEN: Soft. EXTREMITIES: No edema. Tremor and rigidity with bradykinesia is noted. IMPRESSION: Stabilizing on adjusted therapy. No signs of seizures. PLAN: Continue current management with close monitoring and possible discharge to alf facility for rehabilitation in the next 24 hours. Bruno Duckworth M.D. DR: BESSIE JOB#: [id number] CC:
--- NOTE | 2017-01-22 07:00 | Progress Note ---
DATE: 01/20/2017 INTERNAL MEDICINE PROGRESS NOTE This is a late entry for 01/20/2017. SUBJECTIVE: The patient's condition deteriorated. Today, she had several hours of unresponsiveness. She was seen by Neurology. She had ABG performed revealing pH 7.48, pCO2 34, and PO2 80. No other symptoms were seen. A CAT scan of the brain revealed no acute process. The patient subsequently improved and woke up, but was still withdrawn. She has been started on IV fluids and remained NPO due to aspiration risk. Additional anti-Parkinson's therapies were added by Dr. Ray. OBJECTIVE: NECK: Supple. LUNGS: Clear. CARDIAC: Regular. ABDOMEN: Soft. EXTREMITIES: No edema. IMPRESSION: 1. Rule out seizures. 2. Advancing Parkinson disease. 3. Urinary tract infection status post treatment. 4. Hypovolemia corrected. PLAN: 1. Await EEG. 2. Psych therapy with addition of Mirapex and continue Sinemet titration as well as anti-depressant. Bruno Duckworth M.D. DR: BESSIE JOB#: [id number] CC:
[2017-01-22] MEDS: Aspirin Baby 81mg ORAL SCH (08:59)
[2017-01-22] MEDS: Vitamin D 1000 IU Tab ORAL SCH ×2 (08:59→18:47)
[2017-01-22] MEDS: Heparin 5000 units/ml inj SUBQ SCH ×2 (09:00→20:24)
[2017-01-22] MEDS: ENTACAPONE ORAL SCH ×4 (09:01→18:47)
[2017-01-22] MEDS: CARBIDOPA ORAL SCH ×4 (09:01→18:47)
[2017-01-22] MEDS: LEVODOPA ORAL SCH ×4 (09:01→18:47)
[2017-01-22 09:20] LABS: BASOPHILS % (AUTO) 1.1 % (0.0-2.0); EOSINOPHILS % (AUTO) 1.8 % (0.0-3.0); LYMPHOCYTES % (AUTO) 31.6 % (20.0-45.0); MEAN CORPUSCULAR HEMOGLOBIN 34.5 PG (27.0-31.0); MEAN CORPUSCULAR HGB CONC 34.1 G/DL (32.0-36.0); MEAN CORPUSCULAR VOLUME 101 FL (80-99); MEAN PLATELET VOLUME 7.8 FL (6.5-10.1); MONOCYTES % (AUTO) 7.2 % (1.0-10.0); NEUTROPHILS % (AUTO) 58.3 % (45.0-75.0); PLATELET COUNT 242 K/UL (150-450); RED BLOOD COUNT 3.98 M/UL (4.20-5.40); RED CELL DISTRIBUTION WIDTH 11.4 % (11.6-14.8); WHITE BLOOD COUNT 5.7 K/UL (4.8-10.8)
[2017-01-22 09:37] LABS: ALANINE AMINOTRANSFERASE 158 U/L (3-33); ALBUMIN/GLOBULIN RATIO 1.4 (1.0-2.7); ANION GAP 11 (5-15); ASPARTATE AMINO TRANSFERASE 135 U/L (5-40); CALCIUM 9.1 mg/dL (8.6-10.2); CARBON DIOXIDE 27 mEQ/L (20-30); CHLORIDE 107 mEQ/L (98-107); CREATININE 0.7 mg/dL (0.5-0.9); HEMOLYSIS 30; MAGNESIUM 2.2 mg/dL (1.7-2.5); POTASSIUM 4.1 mEQ/L (3.4-4.9); SODIUM 145 mEQ/L (135-145)
--- NOTE | 2017-01-22 16:05 | Neurology Progress Note ---
Interim History Interim History Interim History Ms. Lu feels better. She was sleeping most of the morning. The mind is clearer. She feels stronger. She did some walking with the therapist yesterday. She has not walked today. She is not exhibiting any behavioral problems today. Review of Systems Neuro Review of Systems Benign. Objective Physical Exam Last Vital Signs Date Time Temp Pulse Resp B/P (MAP) Pulse Ox O2 Delivery O2 Flow Rate FiO2 01/22/17 15:51 98.2 82 20 165/86 99 Room Air Laboratory Tests Test 01/22/17 08:50 White Blood Count 5.7 K/UL (4.8-10.8) Red Blood Count 3.98 M/UL (4.20-5.40) L Hemoglobin 13.7 G/DL (12.0-16.0) Hematocrit 40.2 % (37.0-47.0) Mean Corpuscular Volume 101 FL (80-99) H Mean Corpuscular Hemoglobin 34.5 PG (27.0-31.0) H Mean Corpuscular Hemoglobin Concent 34.1 G/DL (32.0-36.0) Red Cell Distribution Width 11.4 % (11.6-14.8) L Platelet Count 242 K/UL (150-450) Mean Platelet Volume 7.8 FL (6.5-10.1) Neutrophils (%) (Auto) 58.3 % (45.0-75.0) Lymphocytes (%) (Auto) 31.6 % (20.0-45.0) Monocytes (%) (Auto) 7.2 % (1.0-10.0) Eosinophils (%) (Auto) 1.8 % (0.0-3.0) Basophils (%) (Auto) 1.1 % (0.0-2.0) Sodium Level 145 mEQ/L (135-145) Potassium Level 4.1 mEQ/L (3.4-4.9) Chloride Level 107 mEQ/L (98-107) Carbon Dioxide Level 27 mEQ/L (20-30) Anion Gap 11 (5-15) Blood Urea Nitrogen 8 mg/dL (7-23) Creatinine 0.7 mg/dL (0.5-0.9) Estimat Glomerular Filtration Rate mL/min (>60) Glucose Level 144 mg/dL (74-106) H Calcium Level 9.1 mg/dL (8.6-10.2) Magnesium Level 2.2 mg/dL (1.7-2.5) Total Bilirubin 0.2 mg/dL (0.0-1.2) Aspartate Amino Transf (AST/SGOT) 135 U/L (5-40) H Alanine Aminotransferase (ALT/SGPT) 158 U/L (3-33) H Alkaline Phosphatase 81 U/L (35-104) Total Protein 7.0 g/dL (6.6-8.7) Albumin 4.1 g/dL (3.5-5.2) Globulin 2.9 g/dL Albumin/Globulin Ratio 1.4 (1.0-2.7) Neurologic Exam Objective NEUROLOGIC EXAMINATION: Mental Status Examination: She was awake and alert. She was oriented to self only. She was able to recall 3/3 words immediately but could only remember 2/3 in 1 and 3 minutes. She was able to remember presidents Trump and Obama only. Her mathematical skills were impaired and so was her visuospatial function. Speech: Mild dysarthria. Language: Mild anomia Cranial Nerve Examination: II through XII intact. Motor Examination: G 5-/5 except for G 4/5 in iliopsoas and toe extensors. Sensory Examination: Intact to pin prick, light touch and graphesthesia. Coordination: Intact to [id number] testing. Reflexes: 2+ and bilaterally symmetrical at the biceps, triceps, brachioradialis and knees. 0 at both ankles. The plantar reflexes were flexor bilaterally. Stance: She stood up with support. Gait: She took a few steps with support. Abnormal Movements: Tremor: G 0/4 Rigidity: G 1/4 Bradykinesia: G 2/4 Hypomimia: G 2/4 Hypophonia: G 2/4 Dyskinesia: G 0/4 Impression/Recommendations Diagnostic Impression 1. Ms. Roberta Lu is a 71 year-old, right-handed, lady with a past history of multiple medical problems including Parkinson's Disease who was admitted for episodes of generalized profound weakness and some lethargy. 2. The initial impression was that her altered mental state represented a metabolic encephalopathy related to underlying dehydration and urinary tract infection in the setting of polypharmacy. 3. She was much better yesterday, the mind was clearer and she is stronger. Today she is more subdued. 4. On neurological examination, at this time she does have global cerebral dysfunction, generalized weakness, and more parkinsonian but with no dyskinesias. 5. She could be more parkinsonian today due to not getting her medicines on time as she was very sleepy earlier. Recommendations 1. Continue present management. 2. Increase activity as tolerated. Derrick Menjivar M.D., M.S.P.H. Neurologist & Clinical Neurophysiologist DERRICK MENJIVAR Jan 22, 2017 16:05
[2017-01-23] VITALS: BP 113/66
[2017-01-23 04:03] VITALS: BP 147/73
--- NOTE | 2017-01-23 06:45 | Progress Note ---
DATE: 01/22/2017 INTERNAL MEDICINE PROGRESS NOTE SUBJECTIVE: The patient is alert, but subdued. No nausea or vomiting. No abdominal pain. No somnolence. OBJECTIVE: VITAL SIGNS: Afebrile, blood pressure 165/86, pulse 82, and respirations 20. HEENT: Anicteric sclerae. Continued rigidity and mask-like facies. LUNGS: Clear. CARDIAC: Regular. ABDOMEN: Soft. EXTREMITIES: No edema. LABORATORY DATA: Labs notable for AST, ALT increasing to 135 and 158 respectively with normal total bilirubin and alkaline phosphatase levels. IMPRESSION: 1. Acute transaminitis, possibly medication related. 2. Parkinson's disease with exacerbation. 3. Dementia, resolved. 4. Hypovolemia, dehydration. 5. Urinary tract infection, recovered. PLAN: 1. Discontinue antibiotics. 2. Discontinue nonessential medications. 3. Continue to monitor hepatic function parameters. 4. Consider hepatic ultrasound. 5. Titrate Parkinson's regimen. Bruno Duckworth M.D. DR: CARSON JOB#: [id number] CC:
[2017-01-23 07:14] LABS: EOSINOPHILS % (AUTO) 2.8 % (0.0-3.0); LYMPHOCYTES % (AUTO) 36.2 % (20.0-45.0); MEAN CORPUSCULAR HEMOGLOBIN 35.3 PG (27.0-31.0); MEAN CORPUSCULAR HGB CONC 34.4 G/DL (32.0-36.0); MEAN CORPUSCULAR VOLUME 103 FL (80-99); MEAN PLATELET VOLUME 8.2 FL (6.5-10.1); MONOCYTES % (AUTO) 6.4 % (1.0-10.0); NEUTROPHILS % (AUTO) 53.5 % (45.0-75.0); PLATELET COUNT 238 K/UL (150-450); RED BLOOD COUNT 3.63 M/UL (4.20-5.40); RED CELL DISTRIBUTION WIDTH 11.7 % (11.6-14.8); WHITE BLOOD COUNT 7.5 K/UL (4.8-10.8)
[2017-01-23 07:39] LABS: BILIRUBIN,DIRECT 0.1 mg/dL (0.1-0.3); TOTAL PROTEIN 6.8 g/dL (6.6-8.7)
[2017-01-23 08:00] VITALS: BP 154/76
[2017-01-23] MEDS: Vitamin D 1000 IU Tab ORAL SCH ×2 (08:48→17:33)
[2017-01-23] MEDS: Heparin 5000 units/ml inj SUBQ SCH ×2 (08:48→21:43)
[2017-01-23] MEDS: Aspirin Baby 81mg ORAL SCH (08:49)
[2017-01-23] MEDS: ENTACAPONE ORAL SCH ×4 (09:51→18:45)
[2017-01-23] MEDS: CARBIDOPA ORAL SCH ×4 (09:51→18:45)
[2017-01-23] MEDS: LEVODOPA ORAL SCH ×4 (09:51→18:45)
[2017-01-23 12:00] VITALS: BP 99/59
--- NOTE | 2017-01-23 13:23 | Neurology Progress Note ---
Interim History Interim History Interim History Ms. Lu feels much better. She is alert and brighter today. She ate most of her lunch today. The mind is clearer. She feels stronger. She did some walking with the therapist today and was steadier on her feet. She is not exhibiting any behavioral problems today. Review of Systems Neuro Review of Systems Benign. Objective Physical Exam Last Vital Signs Date Time Temp Pulse Resp B/P (MAP) Pulse Ox O2 Delivery O2 Flow Rate FiO2 01/23/17 12:00 97.2 73 18 99/59 97 Room Air Laboratory Tests Test 01/23/17 05:15 01/23/17 05:30 White Blood Count 7.5 K/UL (4.8-10.8) Red Blood Count 3.63 M/UL (4.20-5.40) L Hemoglobin 12.8 G/DL (12.0-16.0) Hematocrit 37.3 % (37.0-47.0) Mean Corpuscular Volume 103 FL (80-99) H Mean Corpuscular Hemoglobin 35.3 PG (27.0-31.0) H Mean Corpuscular Hemoglobin Concent 34.4 G/DL (32.0-36.0) Red Cell Distribution Width 11.7 % (11.6-14.8) Platelet Count 238 K/UL (150-450) Mean Platelet Volume 8.2 FL (6.5-10.1) Neutrophils (%) (Auto) 53.5 % (45.0-75.0) Lymphocytes (%) (Auto) 36.2 % (20.0-45.0) Monocytes (%) (Auto) 6.4 % (1.0-10.0) Eosinophils (%) (Auto) 2.8 % (0.0-3.0) Basophils (%) (Auto) 1.0 % (0.0-2.0) Total Bilirubin 0.3 mg/dL (0.0-1.2) Direct Bilirubin 0.1 mg/dL (0.1-0.3) Gamma Glutamyl Transpeptidase 41 U/L (5-36) H Aspartate Amino Transf (AST/SGOT) 136 U/L (5-40) H Alanine Aminotransferase (ALT/SGPT) 94 U/L (3-33) H Alkaline Phosphatase 90 U/L (35-104) Total Protein 6.8 g/dL (6.6-8.7) Albumin 3.8 g/dL (3.5-5.2) Neurologic Exam Objective NEUROLOGIC EXAMINATION: Mental Status Examination: She was awake and alert. She was oriented to self and December 2016. She was able to recall 3/3 words immediately but could only remember 2/3 in 1 and 3 minutes. She was able to remember presidents Trump and Obama only. Her mathematical skills were impaired and so was her visuospatial function. Speech: Mild dysarthria. Language: Mild anomia Cranial Nerve Examination: II through XII intact. Motor Examination: G 5-/5 except for G 4+/5 in iliopsoas and toe extensors. Sensory Examination: Intact to pin prick, light touch and graphesthesia. Coordination: Intact to [id number] testing. Reflexes: 2+ and bilaterally symmetrical at the biceps, triceps, brachioradialis and knees. 0 at both ankles. The plantar reflexes were flexor bilaterally. Stance: She stood up with support. Gait: She took a few steps with support. Abnormal Movements: Tremor: G 0/4 Rigidity: G Trace/4 Bradykinesia: G 1/4 Hypomimia: G 1/4 Hypophonia: G 1/4 Dyskinesia: G 0/4 Impression/Recommendations Diagnostic Impression 1. Ms. Roberta Lu is a 71 year-old, right-handed, lady with a past history of multiple medical problems including Parkinson's Disease who was admitted for episodes of generalized profound weakness and some lethargy. 2. The initial impression was that her altered mental state represented a metabolic encephalopathy related to underlying dehydration and urinary tract infection in the setting of polypharmacy. 3. She is much better today. She feels generally better, enjoyed he walk, and is less parkinsonian. 4. On neurological examination, at this time she does have global cerebral dysfunction, generalized weakness, but is less parkinsonian with no dyskinesias. 5. Her parkinsonian syndrome is better controlled now. Recommendations 1. Continue present management. 2. Increase activity as tolerated. Derrick Menjivar M.D., M.S.P.H. Neurologist & Clinical Neurophysiologist DERRICK MENJIVAR Jan 23, 2017 13:23
[2017-01-23 16:00] VITALS: BP 122/76
[2017-01-23 20:00] VITALS: BP 115/53
[2017-01-24 00:46] VITALS: BP 137/67
[2017-01-24 04:52] VITALS: BP 131/61
[2017-01-24 08:00] VITALS: BP 157/82
[2017-01-24] MEDS: LEVODOPA ORAL SCH ×4 (09:23→18:41)
[2017-01-24] MEDS: Vitamin D 1000 IU Tab ORAL SCH ×2 (09:23→17:36)
[2017-01-24] MEDS: ENTACAPONE ORAL SCH ×4 (09:23→18:41)
[2017-01-24] MEDS: Aspirin Baby 81mg ORAL SCH (09:23)
[2017-01-24] MEDS: CARBIDOPA ORAL SCH ×4 (09:23→18:41)
[2017-01-24] MEDS: Heparin 5000 units/ml inj SUBQ SCH ×2 (09:24→21:38)
[2017-01-24 12:00] VITALS: BP 116/62
--- NOTE | 2017-01-24 12:00 | Progress Note ---
DATE: 01/23/2017 INTERNAL MEDICINE PROGRESS NOTE: SUBJECTIVE: The patient is awake, alert, more interactive. She ambulated with therapist. She still has difficulty with use of her extremities and needs help with meals at times. OBJECTIVE: VITAL SIGNS: Blood pressure is 99/59, pulse 73, respiratory rate 18, and afebrile. HEENT: No icterus. LUNGS: Clear. CARDIAC: Regular. Normal S1 and S2. ABDOMEN: Soft. No guarding. No rebound. EXTREMITIES: No edema. LABORATORY DATA: Notable for white count 7.5 and hemoglobin of 12.3. GGT is 41. AST and ALT are 136 and 94 respectively. IMPRESSION: Transaminitis, slightly better. Etiology still unclear, possibly medication-associated. PLAN: 1. Continue observation. 2. Abdominal biliary ultrasound will be planned. 3. We will continue titration of Parkinson's regimen. Bruno Duckworth M.D. DR: Shirley JOB#: [id number] CC:
--- NOTE | 2017-01-24 13:37 | Neurology Progress Note ---
Interim History Interim History Interim History Ms. Lu continues to feel much better. She is alert and brighter. She is eager to go home. She ate most of her lunch today. The mind is clearer. She feels stronger. She did some walking with the therapist today and was steadier on her feet. She is not exhibiting any behavioral problems. Review of Systems Neuro Review of Systems Benign. Objective Physical Exam Last Vital Signs Date Time Temp Pulse Resp B/P (MAP) Pulse Ox O2 Delivery O2 Flow Rate FiO2 01/24/17 12:00 97.2 74 20 116/62 96 Room Air Neurologic Exam Objective NEUROLOGIC EXAMINATION: Mental Status Examination: She was awake and alert. She was oriented to self, [facility] [place], and December 2016. She was able to recall 3/3 words immediately but could only remember 2/3 in 1 and 3 minutes. She was able to remember presidents Trump and Obama only. Her mathematical skills were impaired and so was her visuospatial function. Speech: Mild dysarthria. Language: Mild anomia Cranial Nerve Examination: II through XII intact. Motor Examination: G 5-/5 except for G 4+/5 in iliopsoas and toe extensors. Sensory Examination: Intact to pin prick, light touch and graphesthesia. Coordination: Intact to [id number] testing. Reflexes: 2+ and bilaterally symmetrical at the biceps, triceps, brachioradialis and knees. 0 at both ankles. The plantar reflexes were flexor bilaterally. Stance: She stood up with support. Gait: She took a few steps with support. Abnormal Movements: Tremor: G 0/4 Rigidity: G Trace/4 Bradykinesia: G 1/4 Hypomimia: G 1/4 Hypophonia: G 1/4 Dyskinesia: G 0/4 Impression/Recommendations Diagnostic Impression 1. Ms. Roberta Lu is a 71 year-old, right-handed, lady with a past history of multiple medical problems including Parkinson's Disease who was admitted for episodes of generalized profound weakness and some lethargy. 2. The initial impression was that her altered mental state represented a metabolic encephalopathy related to underlying dehydration and urinary tract infection in the setting of polypharmacy. 3. She continues to improve. She feels generally better, enjoyed her walk, and her parkinsonian symptoms have stabilized 4. On neurological examination, at this time, she does have global cerebral dysfunction, generalized weakness, her parkinsonian signs have stabilized with no dyskinesias. 5. Her parkinsonian syndrome is better controlled now. Recommendations 1. Continue present management. 2. Increase activity as tolerated. Derrick Menjivar M.D., M.S.P.H. Neurologist & Clinical Neurophysiologist DERRICK MENJIVAR Jan 24, 2017 13:36
[2017-01-24 16:00] VITALS: BP 135/59
[2017-01-24 20:00] VITALS: BP 135/76
--- NOTE | 2017-01-24 20:08 | Diagnostic Imaging Report ---
APPROVED REPORT CPT Code: 30108 Vascular Symptoms Comments: Altered LOC Doppler Spectral Velocity Analysis RightLeft BILATERAL: CCA/BULB - Imaging reveals irregular, minimal (20-30%) plaque in both carotid carotid arteries. The Doppler spectral flow analysis is within normal limits throughout the internal and external carotid arteries. VERTEBRALS - Imaging reveals both vertebral arteries to be patent, without evidence of stenosis or steal.
[2017-01-25] VITALS: BP 132/75
[2017-01-25 04:00] VITALS: BP 131/65
--- NOTE | 2017-01-25 04:00 | Progress Note ---
DATE: 01/24/2017 INTERNAL MEDICINE PROGRESS NOTE SUBJECTIVE: The patient is awake, alert, bright, and interactive. Tolerating diet. No nausea, vomiting, or abdominal pain. OBJECTIVE: VITAL SIGNS: Blood pressure 116/62 to 157/82, heart rate 71 to 83, respiratory rate 18, and afebrile. GENERAL: Increased tone, rigidity, and mask-like faces. LUNGS: Clear. CARDIAC: Regular. Normal S1 and S2. ABDOMEN: Soft. EXTREMITIES: No edema in the extremities. IMPRESSION: 1. Transaminitis, etiology unclear, but likely medication associated. 2. Parkinson's disease with exacerbation. 3. Urinary tract infection with sepsis. 4. Metabolic and toxic encephalopathy. 5. Hypertension. PLAN: 1. Recheck liver function. 2. Off antibiotics now. 3. Titrate antiparkinson regimen. 4. Mobilize. 5. Discharge planning if hepatic function stabilizing. Bruno Duckworth M.D. DR: CAMERON JOB#: [id number] CC:
[2017-01-25 07:21] LABS: BASOPHILS % (AUTO) 1.4 % (0.0-2.0); EOSINOPHILS % (AUTO) 1.7 % (0.0-3.0); LYMPHOCYTES % (AUTO) 35.9 % (20.0-45.0); MEAN CORPUSCULAR HEMOGLOBIN 36.4 PG (27.0-31.0); MEAN CORPUSCULAR HGB CONC 35.2 G/DL (32.0-36.0); MEAN CORPUSCULAR VOLUME 104 FL (80-99); MEAN PLATELET VOLUME 7.4 FL (6.5-10.1); PLATELET COUNT 300 K/UL (150-450); RED BLOOD COUNT 4.05 M/UL (4.20-5.40); RED CELL DISTRIBUTION WIDTH 11.9 % (11.6-14.8); WHITE BLOOD COUNT 6.5 K/UL (4.8-10.8)
[2017-01-25 07:35] LABS: ALANINE AMINOTRANSFERASE 157 U/L (3-33); ANION GAP 11 (5-15); ASPARTATE AMINO TRANSFERASE 137 U/L (5-40); BILIRUBIN,DIRECT 0.1 mg/dL (0.1-0.3); CALCIUM 9.5 mg/dL (8.6-10.2); CARBON DIOXIDE 28 mEQ/L (20-30); CHLORIDE 104 mEQ/L (98-107); CREATININE 0.7 mg/dL (0.5-0.9); HEMOLYSIS 16; POTASSIUM 3.9 mEQ/L (3.4-4.9); SODIUM 143 mEQ/L (135-145); TOTAL PROTEIN 7.3 g/dL (6.6-8.7)
[2017-01-25 08:15] VITALS: BP 163/77
[2017-01-25] MEDS: Vitamin D 1000 IU Tab ORAL SCH ×2 (08:55→18:21)
[2017-01-25] MEDS: Aspirin Baby 81mg ORAL SCH (08:55)
[2017-01-25] MEDS: Heparin 5000 units/ml inj SUBQ SCH (08:57)
[2017-01-25] MEDS: CARBIDOPA ORAL SCH ×4 (10:14→18:21)
[2017-01-25] MEDS: ENTACAPONE ORAL SCH ×4 (10:14→18:21)
[2017-01-25] MEDS: LEVODOPA ORAL SCH ×4 (10:14→18:21)
--- NOTE | 2017-01-25 11:32 | Neurology Progress Note ---
Interim History Interim History Interim History Ms. Lu feels much better. She is alert and brighter. She ate most of her breakfast today. The mind is clearer. She feels stronger. She did some walking with the therapist today and was steadier on her feet. She is not exhibiting any behavioral problems. Review of Systems Neuro Review of Systems Benign. Objective Physical Exam Last Vital Signs Date Time Temp Pulse Resp B/P (MAP) Pulse Ox O2 Delivery O2 Flow Rate FiO2 01/25/17 08:55 163/77 01/25/17 08:15 99.0 75 20 97 Room Air Laboratory Tests Test 01/25/17 06:00 White Blood Count 6.5 K/UL (4.8-10.8) Red Blood Count 4.05 M/UL (4.20-5.40) L Hemoglobin 14.8 G/DL (12.0-16.0) Hematocrit 42.0 % (37.0-47.0) Mean Corpuscular Volume 104 FL (80-99) H Mean Corpuscular Hemoglobin 36.4 PG (27.0-31.0) H Mean Corpuscular Hemoglobin Concent 35.2 G/DL (32.0-36.0) Red Cell Distribution Width 11.9 % (11.6-14.8) Platelet Count 300 K/UL (150-450) Mean Platelet Volume 7.4 FL (6.5-10.1) Neutrophils (%) (Auto) 54.0 % (45.0-75.0) Lymphocytes (%) (Auto) 35.9 % (20.0-45.0) Monocytes (%) (Auto) 7.0 % (1.0-10.0) Eosinophils (%) (Auto) 1.7 % (0.0-3.0) Basophils (%) (Auto) 1.4 % (0.0-2.0) Sodium Level 143 mEQ/L (135-145) Potassium Level 3.9 mEQ/L (3.4-4.9) Chloride Level 104 mEQ/L (98-107) Carbon Dioxide Level 28 mEQ/L (20-30) Anion Gap 11 (5-15) Blood Urea Nitrogen 18 mg/dL (7-23) Creatinine 0.7 mg/dL (0.5-0.9) Estimat Glomerular Filtration Rate mL/min (>60) Glucose Level 121 mg/dL (74-106) H Calcium Level 9.5 mg/dL (8.6-10.2) Total Bilirubin 0.4 mg/dL (0.0-1.2) Direct Bilirubin 0.1 mg/dL (0.1-0.3) Aspartate Amino Transf (AST/SGOT) 137 U/L (5-40) H Alanine Aminotransferase (ALT/SGPT) 157 U/L (3-33) H Alkaline Phosphatase 83 U/L (35-104) Total Protein 7.3 g/dL (6.6-8.7) Albumin 4.2 g/dL (3.5-5.2) Neurologic Exam Objective NEUROLOGIC EXAMINATION: Mental Status Examination: She was awake and alert. She was oriented to [place], [facility] [place]. She was able to recall 3/3 words immediately but could only remember 2/3 in 1 and 3 minutes. She was able to remember presidents Trump and Obama only. Her mathematical skills were impaired and so was her visuospatial function. Speech: Mild dysarthria. Language: Mild anomia Cranial Nerve Examination: II through XII intact. Motor Examination: G 5-/5 except for G 4+/5 in iliopsoas and toe extensors. Sensory Examination: Intact to pin prick, light touch and graphesthesia. Coordination: Intact to [id number] testing. Reflexes: 2+ and bilaterally symmetrical at the biceps, triceps, brachioradialis and knees. 0 at both ankles. The plantar reflexes were flexor bilaterally. Stance: She stood up with support. Gait: She took a few steps with support. Abnormal Movements: Tremor: G 0/4 Rigidity: G 0/4 Bradykinesia: G 1/4 Hypomimia: G 0/4 Hypophonia: G 0/4 Dyskinesia: G 1/4 Impression/Recommendations Diagnostic Impression 1. Ms. Roberta Lu is a 71 year-old, right-handed, lady with a past history of multiple medical problems including Parkinson's Disease who was admitted for episodes of generalized profound weakness and some lethargy. 2. The initial impression was that her altered mental state represented a metabolic encephalopathy related to underlying dehydration and urinary tract infection in the setting of polypharmacy. 3. She continues to improve. She feels generally better, enjoyed her walk, and her parkinsonian symptoms have stabilized 4. On neurological examination, at this time, she does have global cerebral dysfunction, generalized weakness, her parkinsonian signs have stabilized with mild dyskinesias. 5. Her parkinsonian syndrome is better controlled now. Recommendations 1. Continue present management. 2. Increase activity as tolerated. Derrick Menjivar M.D., M.S.P.H. Neurologist & Clinical Neurophysiologist DERRICK MENJIVAR Jan 25, 2017 11:32
[2017-01-25 12:15] VITALS: BP 98/67
[2017-01-25 16:09] VITALS: BP 106/77
--- NOTE | 2017-01-25 16:47 | Diagnostic Imaging Report ---
Indication:Abdominal pain Technique: Grayscale and duplex Doppler imaging of the abdomen performed. Comparison: None Findings: There is increased vascularity in the epigastric region the abdomen. This is above or anterior to the pancreas near the left lobe of the liver. Further evaluation with CT with contrast is suggested. There are no stigmata of cirrhosis definite seen on this examination. Liver size appears relatively normal. Echotexture appears relatively homogeneous and smooth. There is no obvious surface nodularity. Spleen is not enlarged. Gallstones are present. Sonographic Guaman's is negative per technologist. There is no biliary ductal dilatation. Visualized portion of the aorta, pancreas and IVC appear unremarkable. Kidneys are unremarkable. There is no hydronephrosis. Impression: Increased color flow evidence of vascularity in the epigastric region of the abdomen, nature which is not clear. Further evaluation with contrast-enhanced CT is recommended. Cholelithiasis.
[2017-01-25] MEDS ORDERED: MIRTAZAPINE7.5 MG ORAL (18:09)
[2017-01-25] MEDS ORDERED: SINEMET 25-1001 EAC1 ORAL (18:09)
[2017-01-25] MEDS ORDERED: PRAMIPEXOLE D0.25 MG ORAL (18:10)
[2017-01-25] MEDS ORDERED: CATAPRES0.1 MG ORAL (18:12)
--- NOTE | 2017-01-26 05:30 | Progress Note ---
DATE: 01/25/2017 INTERNAL MEDICINE PROGRESS NOTE SUBJECTIVE: No nausea. No vomiting. No abdominal pain. Tolerating diet. Liver function studies reviewed and remains slightly elevated. Abdominal ultrasound reveals increased vascularity around the region of the stomach of questionable significance and cholelithiasis, but no signs of acute cholecystitis. OBJECTIVE: LUNGS: Clear. CARDIAC: Regular. ABDOMEN: Soft. EXTREMITIES: No edema. Mask-like facies and increased rigidity. IMPRESSION: 1. Parkinson's exacerbation likely due to hypovolemia. 2. Urinary tract infection and sepsis, now recovered. 3. Cholelithiasis. 4. Transaminitis, probably medication related. 5. No signs of obstructive biliary pathology. PLAN: 1. Physical therapy. 2. [facility] 3. Continue current medications. 4. Monitor liver function studies. 5. Outpatient CAT scan of the abdomen if persistent transaminitis or any new clinical signs of obstruction. Bruno Duckworth M.D. DR: BESSIE JOB#: [id number] CC:
--- NOTE | 2017-01-27 10:07 | Discharge Summary ---
Discharge Summary Hospital Course Date of Admission Jan 16, 2017 at 22:50 Date of Discharge Jan 25, 2017 at 20:10 Admitting Diagnosis ams, generalized weakness HPI Roberta Lu is a 71 year old female who was admitted on Jan 16, 2017 at 22:50 for Altered Mental Status/Generalized Weakness Hospital Course dc summary #[id number] Discharge Medications Continued Medications: Aspirin* (Aspir 81*) 81 Mg Tablet.dr 81 MG ORAL DAILY, TAB Carbidopa/Levodopa 25-100 Mg* (Sinemet 25-100 Mg Tablet*) 1 Each Tablet 1 TAB ORAL PRN PRN for When immobilized, TAB Carbidopa/Levodopa/Entacapone (Mydptfucu-Krtiqert-Zucs 200 Mg) 1 Each Tablet 1 EACH PO, TAB Cholecalciferol (Vitamin D3) (Vitamin D3) 1,000 Unit Tablet 1000 UNIT PO BID, TAB Clonidine Hcl* (Catapres*) 0.1 Mg Tablet 0.1 MG ORAL EVERY 4 HOURS PRN for sbp <160, TAB Mirtazapine* (Mirtazapine*) 7.5 Mg Tablet 7.5 MG ORAL BEDTIME, TAB Pramipexole* (Mirapex*) 0.25 Mg Tablet 0.125 MG ORAL THREE TIMES A DAY, TAB Discontinued Medications: Atorvastatin Calcium* (Lipitor*) 10 Mg Tablet 10 MG ORAL BEDTIME, TAB Carbidopa/Levodopa (Carbidopa-Levo Er 50-200 Tab) 1 Each Tablet.er 1 EACH PO BID, TAB Quetiapine Fumarate* (Seroquel*) 25 Mg Tablet 25 MG ORAL TWICE A DAY, TAB Selegiline Hcl* (Eldepryl*) 5 Mg Capsule 5 MG ORAL TWICE A DAY, #10 CAP 0 Refills Discharge Discharge Disposition Patient was discharged to SNF/Subacute Facility(03) Discharge Diagnoses: Discharge Instructions Discharge Instructions Special Instructions I have been assigned to complete a D/C Summary on this account. I was not involved in the patient management Oxana Flannery NP (Vanchtein) Jan 27, 2017 10:07
--- NOTE | 2017-01-28 01:00 | Discharge Summary 2 SIG ---
DATE OF ADMISSION: 01/16/2017 DATE OF DISCHARGE: 01/25/2017 The patient was admitted under Dr. Duckworth. 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 She was living in assisted living with other nuns and noted to be increasingly altered. She was brought to emergency department for evaluation. Past medical history significant for cerebrovascular disease, dementia, Parkinson disease, gastroesophageal reflux disease, degenerative disk disease and osteoarthritis. Workup in the emergency room revealed urinalysis consistent with urinary tract infection. Stable electrolytes. No leukocytosis. Stable hemoglobin and hematocrit. CT of the head revealed no intracranial hemorrhage or focal cortical edema, but showed 6 mm hypodensity of the left basal ganglia suggestive of undetermined acute lacunar infarct. MRI was recommended for further evaluation. ADMITTING DIAGNOSES: 1. Altered level of consciousness. 2. Possible transient ischemic attack. 3. History of cerebrovascular with dementia. 4. Urinary tract infection. 5. Dehydration. 6. Parkinson disease. HOSPITAL COURSE: The patient was admitted. The patient was started on empiric antibiotics. Followed up with the urine. Urine culture and blood culture are negative. The patient is status post treatment with empiric antibiotics. No leukocytosis. The patient was initially on the IV fluids for hydration. Vital signs were stable. Neurology consult was requested for evaluation of Parkinson disease and altered level of consciousness. Initially, neurologist concluded that the patient had a metabolic encephalopathy likely secondary to dehydration and underlying urinary tract infection. Carotid duplex was ordered, which revealed minimal plaque in bilateral carotid bulbs 20% to 30%. No evidence of stenosis or steal. MRI of the brain was followed. CT of the head essentially was negative. It shows chronic small vessel disease. No mass effect, midline shift, edema, or hemorrhage. No abnormal extra-axial or intra-axial fluid collection. In summary, mild atrophy and evidence of chronic small vessel disease involving white matter tracts. No acute intracranial findings. TSH was within normal limits. B12 and folate level were stable. Neurologist closely followed the patient on a daily basis. Sinemet was redosed as per neurologist. Seroquel was tapered off and discontinued. The patient was off all sedatives. Swallow evaluation was done at the bedside and recommended video swallow evaluation. Video swallow evaluation suggested high aspiration risk and evidence of dysphagia. Recommended moist mechanical soft ground with thin liquid diet. Strict aspiration precautions were maintained. The patient was able to tolerate diet. The patient was planning for discharge, however, her condition deteriorated and she became less responsive. CT of the brain was repeated. Also, there was a question of possible seizures. CT of the head again revealed no acute intracranial pathology. EEG was normal, awake and drowsy. The patient was started empirically on Keppra, however, in one day noted transaminitis and Keppra stopped. The patient was off all sedatives. LFTs were closely monitored. Abdominal ultrasound revealed cholelithiasis, however, no signs of obstructive biliary pathology. The patient's mental status was clear at the baseline. The patient was stable for discharge. Transfer was arranged to senior care facility. Recommended outpatient CT of the abdomen if persistent transaminitis or clinical signs of biliary obstruction. It was presumed that the transaminitis was likely secondary to medication. Keppra stopped. Statin, that the patient was previously on, stopped as well. FINAL DIAGNOSES: 1. Metabolic encephalopathy secondary to dehydration and urinary tract infection, resolved. 2. Possible transient ischemic attack. 3. History of cerebrovascular accident with dementia. 4. Urinary tract infection status post treatment. 5. Dehydration, resolved. 6. Advanced Parkinson disease with exacerbation. 7. Global cerebral dysfunction with generalized weakness and dyskinesia. 8. Acute transaminitis likely related to medication. 9. Cholelithiasis. 10. Dysphagia. DISCHARGE MEDICATIONS: See medication reconciliation list. DISCHARGE INSTRUCTIONS: The patient was discharged to senior care facility. FOLLOWUP: Follow up with the medical doctor at the facility. Bruno Duckworth M.D. I have been assigned to dictate discharge summary on this account and I was not involved in the patient's management. Oxana Flannery (vanchtein) N.P. DR: IRINA JOB#: [id number] CC:
== END 2017-01-25 20:10 | DRG 71 ==
LOC: EDBD 21:49 → EMR 22:00 → 2E 22:50 → EDBEDREQSVC 23:13 → EDBEDREQ 23:44 → 4E 01-18 14:54
DX: G93.41 Metabolic encephalopathy (principal); G45.9 Transient cerebral ischemic attack, unspecified; N17.9 Acute kidney failure, unspecified; F05 Delirium due to known physiological condition; G20 Parkinson's disease; N39.0 Urinary tract infection, site not specified; E86.0 Dehydration; F01.50 Vascular dementia, unspecified severity, without behavioral disturbance, psychotic disturbance, mood disturbance, and anxiety; E86.1 Hypovolemia; K21.9 Gastro-esophageal reflux disease without esophagitis; Z86.73 Personal history of transient ischemic attack (TIA), and cerebral infarction without residual deficits; G93.89 Other specified disorders of brain; K80.20 Calculus of gallbladder without cholecystitis without obstruction; R13.10 Dysphagia, unspecified; R74.0 Nonspecific elevation of levels of transaminase and lactic acid dehydrogenase [LDH]; T50.995A Adverse effect of other drugs, medicaments and biological substances, initial encounter
CPT/HCPCS: 36415; 36600; 70450; 70551; 74230; 76700; 80048; 80053; 80061; 80076; 80299; 81003; 82607; 82746; 82803; 82962; 82977; 83735; 84443; 84484; 85025; 85610; 85730; 87040; 87086; 93005; 93880; 95819

== ENCOUNTER 2017-03-13 17:56 | Emergency (ER) | payer MEDICARE, MEDICAID ==
[~2017-03-13] VITALS: Ht 157.5 cm; Wt 56.7 kg
[~2017-03-13 17:56] MED LIST: ASPIR 8181 MG ORAL; ATORVASTATIN CA10 MG ORAL; CARBIDOPA-LEVO1 EA15 PO; CARBIDOPA-LEVO1 EAC5 PO; CATAPRES0.1 MG ORAL; ELDEPRYL5 MG ORAL; MIRTAZAPINE7.5 MG ORAL; PRAMIPEXOLE D0.25 MG ORAL; QUETIAPINE FUMA25 MG ORAL; SEROQUEL25 MG ORAL; SINEMET 25-1001 EAC1 ORAL; VITAMIN D-32000 UNI1 PO; VITAMIN D31000 UNI2 PO; VITAMIN D400 INTLU ORAL
[2017-03-13 17:58] VITALS: BP 159/62
--- NOTE | 2017-03-13 18:17 | Emergency Room Report ---
History of Present Illness General Chief Complaint: Altered Level of Consciousness Source: EMS Present Illness HPI Is a material female sent in from care home after increased altered level consciousness. Patient prior history of encephalopathy and dementia. The presented after increased confusion. Patient had been noted to have Allergies: Coded Allergies: No Known Allergies (Unverified , 01/16/17) Patient History Reviewed Nursing Documentation: PMH: Agreed, PSxH: Agreed Nursing Documentation-PMH Hx Cardiac Problems: Yes Hx Hypertension: Yes Hx Cancer: No Hx Gastrointestinal Problems: No Hx Neurological Problems: Yes Hx Cerebrovascular Accident: Yes - hemorragic CVA(1999) Hx Parkinson's Disease: Yes Review of Systems All Other Systems: negative except mentioned in HPI Physical Exam Vital Signs Date Time Temp Pulse Resp B/P (MAP) Pulse Ox O2 Delivery O2 Flow Rate FiO2 03/13/17 17:48 97.3 74 16 154/75 98 Room Air Sp02 EP Interpretation: reviewed, normal General Appearance: normal inspection, well appearing, no apparent distress, alert, Chronically Ill Head: atraumatic ENT: normal ENT inspection, hearing grossly normal, normal voice Neck: normal inspection, full range of motion, supple, no bony tend Respiratory: normal inspection, lungs clear, normal breath sounds, no respiratory distress, no retraction, no wheezing Cardiovascular #1: regular rate, rhythm, no edema Gastrointestinal: normal inspection, normal bowel sounds, non tender, soft, no guarding, no hernia Genitourinary: no CVA tenderness Musculoskeletal: normal inspection, back normal, normal range of motion Neurologic: normal inspection, alert, responsive, 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 Differential diagnosis included but was not limited to ischemic stroke, subarachnoid hemorrhage, hypoglycemia, spinal cord injury, neurodegenerative disorder, urinary tract infection, hypoxemia.Because of complexity of patient's case laboratory testing and imaging studies were ordered.CT the head read by radiologist no acute changes. Patient noted to have been able to follow commands. Patient appears to be at baseline mental status per visitors. Laboratory testing was unremarkable. Urinalysis showed evidence of infection. The patient returns her back to her nursing facility. The patient was sent via [facility] Labs Test 03/13/17 18:10 03/13/17 18:24 03/13/17 18:25 03/13/17 19:30 Arterial Blood pH 7.457 (7.350-7.450) Arterial Blood Partial Pressure CO2 37.4 mmHg (35.0-45.0) Arterial Blood Partial Pressure O2 75.1 mmHg (75.0-100.0) Arterial Blood HCO3 25.8 mmol/L (22.0-26.0) Arterial Blood Oxygen Saturation 95.5 % (92.0-98.0) Arterial Blood Base Excess 2.1 Reji Test Positive White Blood Count 7.2 K/UL (4.8-10.8) Red Blood Count 3.74 M/UL (4.20-5.40) Hemoglobin 12.4 G/DL (12.0-16.0) Hematocrit 37.0 % (37.0-47.0) Mean Corpuscular Volume 99 FL (80-99) Mean Corpuscular Hemoglobin 33.1 PG (27.0-31.0) Mean Corpuscular Hemoglobin Concent 33.5 G/DL (32.0-36.0) Red Cell Distribution Width 11.3 % (11.6-14.8) Platelet Count 273 K/UL (150-450) Mean Platelet Volume 6.9 FL (6.5-10.1) Neutrophils (%) (Auto) 50.3 % (45.0-75.0) Lymphocytes (%) (Auto) 39.3 % (20.0-45.0) Monocytes (%) (Auto) 7.2 % (1.0-10.0) Eosinophils (%) (Auto) 1.9 % (0.0-3.0) Basophils (%) (Auto) 1.3 % (0.0-2.0) Prothrombin Time 9.7 SEC (9.30-11.50) Prothromb Time International Ratio 0.9 (0.9-1.1) Activated Partial Thromboplast Time 27 SEC (23-33) Sodium Level 136 MMOL/L (136-145) Potassium Level 3.6 MMOL/L (3.5-5.1) Chloride Level 103 MMOL/L (98-107) Carbon Dioxide Level 28 MMOL/L (21-32) Anion Gap 5 (5-15) Blood Urea Nitrogen 14 mg/dL (7-18) Creatinine 0.7 MG/DL (0.55-1.30) Estimat Glomerular Filtration Rate mL/min (>60) Glucose Level 101 MG/DL (74-106) Calcium Level 9.2 MG/DL (8.5-10.1) Total Bilirubin 0.3 MG/DL (0.2-1.0) Aspartate Amino Transf (AST/SGOT) 16 U/L (15-37) Alanine Aminotransferase (ALT/SGPT) < 6 U/L (12-78) Alkaline Phosphatase 83 U/L (46-116) Total Creatine Kinase 34 U/L (26-308) Creatine Kinase MB < 0.5 NG/ML (0.0-3.6) Creatine Kinase MB Relative Index 1.4 Troponin I 0.003 ng/mL (0.000-0.056) Total Protein 6.9 G/DL (6.4-8.2) Albumin 3.4 G/DL (3.4-5.0) Globulin 3.5 g/dL Albumin/Globulin Ratio 1.0 (1.0-2.7) Lactic Acid Level 1.30 mmol/L (0.66-2.22) Urine Color Yellow Urine Appearance Clear Urine pH 7 (4.5-8.0) Urine Specific [place] 1.015 (1.005-1.035) Urine Protein Negative (NEGATIVE) Urine Glucose (UA) Negative (NEGATIVE) Urine Ketones Negative (NEGATIVE) Urine Occult Blood Negative (NEGATIVE) Urine Nitrite Negative (NEGATIVE) Urine Bilirubin Negative (NEGATIVE) Urine Urobilinogen Normal MG/DL (0.0-1.0) Urine Leukocyte Esterase Negative (NEGATIVE) Last Vital Signs Date Time Temp Pulse Resp B/P (MAP) Pulse Ox O2 Delivery O2 Flow Rate FiO2 03/13/17 17:58 97.3 70 18 159/62 99 Room Air Status: improved Disposition: HOME, SELF-CARE Condition: Stable Rodrigo Marshall Mar 13, 2017 18:17
[2017-03-13 18:41] LABS: ABG BASE EXCESS 2.1; ABG PCO2 37.4 mmHg (35.0-45.0)
[2017-03-13 18:42] LABS: ABG ALLEN TEST POSITIVE
[2017-03-13 18:58] LABS: BASOPHILS % (AUTO) 1.3 % (0.0-2.0); EOSINOPHILS % (AUTO) 1.9 % (0.0-3.0); LYMPHOCYTES % (AUTO) 39.3 % (20.0-45.0); MEAN CORPUSCULAR HEMOGLOBIN 33.1 PG (27.0-31.0); MEAN CORPUSCULAR HGB CONC 33.5 G/DL (32.0-36.0); MEAN CORPUSCULAR VOLUME 99 FL (80-99); MEAN PLATELET VOLUME 6.9 FL (6.5-10.1); MONOCYTES % (AUTO) 7.2 % (1.0-10.0); NEUTROPHILS % (AUTO) 50.3 % (45.0-75.0); PLATELET COUNT 273 K/UL (150-450); RED BLOOD COUNT 3.74 M/UL (4.20-5.40); RED CELL DISTRIBUTION WIDTH 11.3 % (11.6-14.8); WHITE BLOOD COUNT 7.2 K/UL (4.8-10.8)
[2017-03-13 19:24] LABS: INR 0.9 (0.9-1.1); PROTHROMBIN TIME 9.7 SEC (9.30-11.50)
[2017-03-13 19:40] LABS: ALANINE AMINOTRANSFERASE < 6 U/L (12-78); ANION GAP 5 (5-15); ASPARTATE AMINO TRANSFERASE 16 U/L (15-37); CALCIUM 9.2 MG/DL (8.5-10.1); CARBON DIOXIDE 28 MMOL/L (21-32); CHLORIDE 103 MMOL/L (98-107); CKMB < 0.5 NG/ML (0.0-3.6); CREATININE 0.7 MG/DL (0.55-1.30); POTASSIUM 3.6 MMOL/L (3.5-5.1); SODIUM 136 MMOL/L (136-145); TOTAL PROTEIN 6.9 G/DL (6.4-8.2)
[2017-03-13 19:45] LABS: APPEARANCE,URINE CLEAR; KETONES,URINE NEGATIVE (NEGATIVE); LEUKOCYTE ESTERASE ,URINE NEGATIVE (NEGATIVE); NITRITE,URINE NEGATIVE (NEGATIVE); PH,URINE 7 (4.5-8.0); PROTEIN,URINE NEGATIVE (NEGATIVE); UROBILINOGEN,URINE NORMAL MG/DL (0.0-1.0)
[2017-03-13 20:00] VITALS: BP 141/70
[2017-03-13 20:43] VITALS: BP 141/70
--- NOTE | 2017-03-14 09:27 | Diagnostic Imaging Report ---
Indication: Altered mental status Comparison: 01/19/2017 CT brain Technique: Contiguous helical CT images through the brain was performed without intravenous contrast. Axial, coronal and sagittal reconstructions were reformatted. CT dose: Total DLP 1298 mGycm, CTDI volume 70.4 mGy Findings: There is no acute intracranial hemorrhage or infarct. No mass, mass effect or midline shift is identified. Ventricles and sulci are slightly prominent secondary to global cortical atrophy, especially in the frontal lobes, unchanged from the prior exam. Old lacunar infarct in the left sacroiliac is again noted.. No extra-axial fluid collections are seen. Bony calvarium is intact. Mastoid air cells and visualized paranasal sinuses are clear. Impression: No acute intracranial abnormalities. Age-appropriate global cortical atrophy. Old lacunar infarct left basal ganglia. No significant change from prior exam 01/19/2017. The CT scanner at [facility] is accredited by the [employer] and the scans are performed using protocols designed to limit radiation exposure to as low as reasonably achievable to attain images of sufficient resolution adequate for diagnostic evaluation.
--- NOTE | 2017-03-14 09:29 | Diagnostic Imaging Report ---
Indication: SOB Comparison: None Findings: Single view of the chest shows a normal cardiomediastinal silhouette. Pulmonary vasculature is normal. Lung are clear. Soft tissues and osseous structures are within normal limits. Aortic calcifications are noted. Impression: No acute chest disease Aortic calcifications.
--- NOTE | 2017-03-23 08:28 | Cardiology Report ---
APPROVED REPORT EKG Measurement Heart [id number] Normal sinus rhythm Cannot rule out Anterior infarct, age undetermined T wave abnormality, consider lateral ischemia Abnormal ECG
== END 2017-03-13 20:46 | disposition home or self-care (01) ==
LOC: EDBD 17:56 → EMR 18:29
DX: R41.82 Altered mental status, unspecified (principal); G20 Parkinson's disease; I10 Essential (primary) hypertension; Z86.73 Personal history of transient ischemic attack (TIA), and cerebral infarction without residual deficits
CPT/HCPCS: 36415; 36600; 70450; 71010; 80053; 81003; 82550; 82553; 82803; 83605; 84484; 85025; 85610; 85730; 87040; 93005; 99284